=== PATIENT | female | born 1970 | race Caucasian/White ===

== ENCOUNTER 2022-02-26 13:54 | Inpatient (IN) ==
--- NOTE | 2022-02-26 14:02 | Emergency Department Note ---
HPI General Chief complaint: Wound/Laceration Stated complaint: Diabetic Ulcer Time Seen by Provider: 02/26/22 13:57 Source: patient Mode of arrival: ambulatory Limitations: no limitations History of Present Illness HPI Narrative: 52-year-old female with past medical history of type 2 diabetes presents for evaluation of a left foot ulcer. Patient has had an ulcer on the bottom of her left foot for the last [address] Coon of podiatry has been managing it with multiple courses of antibiotics and wound care. The ulcer is now not improving and Dr. Jaymie wakefield is planning to do at least a partial amputation. Patient denies any fevers. There is erythema that is going up the foot. Patient states her blood sugars have been well managed. Related Data Home Medications Medication Instructions Recorded Confirmed acetaminophen 500 mg tablet 1,000 mg PO Q6H PRN 12/12/21 02/26/22 albuterol sulfate 90 mcg/actuation 2 puff INHALATION Q6H PRN 12/12/21 02/26/22 aerosol inhaler (ProAir HFA) aspirin 81 mg tablet,delayed 81 mg PO QDAY 12/12/21 02/26/22 release atorvastatin 10 mg tablet 10 mg PO QDAY 12/12/21 02/26/22 empagliflozin 25 mg tablet 25 mg PO QAM 12/12/21 02/26/22 (Jardiance) escitalopram oxalate 20 mg tablet 20 mg PO QDAY 12/12/21 02/26/22 insulin degludec 200 unit/mL (3 150 unit SUBCUT QDAY 12/12/21 02/26/22 mL) subcutaneous pen (Tresiba FlexTouch U-200 insulin) insulin lispro 200 unit/mL (3 mL) 0 unit SUBCUT AC 12/12/21 02/26/22 subcutaneous pen (Humalog KwikPen U-200 Insulin) lisinopril 20 1 tab PO QDAY 12/12/21 02/26/22 mg-hydrochlorothiazide 25 mg tablet metformin 1,000 mg tablet,extended 750 mg PO BID 12/12/21 02/26/22 release 24hr metoprolol tartrate 25 mg tablet 25 mg PO BID 12/12/21 02/26/22 multivitamin 1 tab PO QAM 12/12/21 02/26/22 nifedipine 30 mg tablet,extended 30 mg PO QDAY 12/12/21 02/26/22 release 24 hr nitrofurantoin macrocrystal 100 mg 100 mg PO QDAY 12/12/21 02/26/22 capsule nortriptyline 10 mg capsule 20 mg PO QHS 12/12/21 02/26/22 polyethylene glycol 3350 17 gram 17 g PO QDAY 12/12/21 02/26/22 oral powder packet (Gavilax) potassium chloride 10 mEq 10 meq PO QDAY 12/12/21 02/26/22 capsule,extended release pregabalin 150 mg capsule 150 mg PO BID 12/12/21 02/26/22 semaglutide 1 mg/dose (4 mg/3 mL) 1 mg SUBCUT WEEKLY 12/12/21 02/26/22 subcutaneous pen injector (Ozempic) Allergies Allergy/AdvReac Type Severity Reaction Status Date / Time acetazolamide Allergy Intermediate Rash Verified 12/12/21 10:07 [From Diamox Sequels] duloxetine [From Cymbalta] Allergy Intermediate Rash Verified 12/12/21 10:07 pear Allergy Intermediate Flushing Verified 12/12/21 10:07 Review of Systems ROS ROS Narrative: Narrative: Constitutional: Denies fever or chills ENT ED: Denies throat pain Cardiovascular: Denies chest pain Respiratory: Denies shortness of breath or cough Gastrointestinal: Denies abdominal pain, nausea or vomiting Genitourinary: Denies dysuria Musculoskeletal: Denies back pain Integumentary: Denies rash Neurological: Denies headache Psychiatric: Denies anxiety Endocrine: Denies fatigue Hematological/Lymphatic: Denies easy bruising PFSH Narrative Patient History Narrative: Narrative: Medical/Surgical/Family History All Active Problems (Updated 02/26/22 @ 16:58 by Jovany Burnette MD) Osteomyelitis (Acute) Social History Smoking Status: Former smoker Exam Narrative Narrative: Narrative: General Limitations: no limitations General appearance: Present alert and in no apparent distress Head Head: Present atraumatic and normocephalic Eye Eye: Present normal appearance and EOMI; Absent scleral icterus or conjunctival injection ENT ENT: Present normal oropharynx and mucous membranes moist Neck Neck: Present trachea midline Chest Chest: Present symmetric chest wall rise Respiratory Respiratory: Present normal lung sounds bilaterally; Absent respiratory distress , rales/crackles, wheezes, stridor or accessory muscle use Cardiovascular Cardiovascular: Present regular rate and normal rhythm; Absent systolic murmur or diastolic murmur Adbominal Abdominal: Present soft; Absent distention, tenderness, guarding, rebound or rigidity Expanded Lower Extremity Foot/toe: Present other (1.2 cm deep ulcer on the bottom of the left foot that is foul-smelling and with some purulence. Surrounding erythema extending over t o the dorsal side of the foot.) Neurological Neurological: Present alert and oriented X3 Psychiatric Psychiatric: Present normal affect and normal mood Skin Skin: Present warm (WNL) and dry Course Consultations Consultation #1: Dr. Sifuentes, hospitalist Time: 17:12 Vital Signs Vital signs: Vital Signs Temperature 100 F H 02/26/22 13:56 Pulse Rate 67 02/26/22 13:56 Respiratory Rate 16 02/26/22 13:56 Blood Pressure 131/74 02/26/22 13:56 Pulse Oximetry (%) 98 02/26/22 13:56 Temperature 100 F H 02/26/22 13:56 Pulse Rate 103 H 02/26/22 16:16 Respiratory Rate 16 02/26/22 13:56 Blood Pressure 127/60 02/26/22 16:16 Pulse Oximetry (%) 94 02/26/22 16:16 MDM MDM Narrative Medical decision making narrative: 52-year-old female presenting with a diabetic foot ulcer that is not improving. VS stable. Will obtain labs, x-ray, and preoperative studies. Dr. Coon is requesting to admit the patient for likely amputation. Labs notable for leukocytosis to 13.6. CRP is elevated at 6.1. X-ray shows evidence of osteomyelitis and cellulitis. Blood cultures and IV vancomycin o rdered. Patient endorsed to Dr. Sifuentes, hospitalist, who will accept the admission. Dr. Coon will consult. Lab Data Lab results reviewed: Yes I reviewed the patient's lab results. Result diagrams: 02/26/22 15:20 02/26/22 15:20 Labs: Lab Results 02/26/22 02/26/22 Range/Units 15:20 15:20 WBC 13.6 H (4.5-11.0) K/mcL RBC 4.54 (3.59-5.38) M/mcL Hgb 13.1 (11.2-15.7) g/dL Hct 42.5 (34.1-44.9) % MCV 93.6 (80.0-100.0) fL MCH 28.9 (26.0-34.0) pg MCHC 30.8 L (31.0-36.0) g/dL RDW 15.6 H (11.5-14.5) % Plt Count 322 (140-440) K/mcL MPV 9.9 (7.4-10.4) fL Neut % (Auto) 70.7 (38.0-78.0) % Lymph % (Auto) 17.9 (15.5-49.0) % [place] % (Auto) 9.1 (1.0-12.0) % Eos % (Auto) 1.8 (0.0-7.0) % Baso % (Auto) 0.5 (0.0-2.0) % Lymph # (Auto) 2.43 (1.50-4.80) K/mcL [place] # (Auto) 1.23 H (0.10-0.90) K/mcL Eos # (Auto) 0.24 (0.00-0.70) K/mcL Baso # (Auto) 0.07 (0.00-0.30) K/mcL Absolute Neutrophils 9.62 H (1.80-8.00) K/mcL ESR 103 H (0-30) mm/hr Sodium 132 L (133-145) mmol/L Potassium 4.5 (3.3-5.1) mmol/L Chloride 97 (96-108) mmol/L Carbon Dioxide 25 (22-30) mmol/L Anion Gap 10.0 (8.0-16.0) BUN 24 H (6-20) mg/dL Creatinine 1.5 H (0.6-1.1) mg/dL GFR Calculation 39 Glucose 88 (70-105) mg/dL Calcium 9.4 (8.6-10.4) mg/dL Total Bilirubin 0.6 (0.1-1.0) mg/dL AST 25 (<32) U/L ALT 27 (<40) U/L Alkaline Phosphatase 135 H (39-117) U/L C-Reactive Protein 6.10 H (0.03-0.80) mg/dL Total Protein 8.2 (5.9-8.4) gm/dL Albumin 4.0 (3.2-5.2) gm/dL Globulin 4.2 H (2.2-3.7) gm/dL Albumin/Globulin Ratio 1.0 (1.0-2.3) Radiology Data Radiology results reviewed: Yes I reviewed the patient's radiology results. Radiology results narrative: Ordering Physician:Jovany Burnette M.D. Date of Service:02/26/22 Procedure(s):XR foot comp LT 3V CLINICAL INFORMATION: Diabetic ulcer COMPARISON: 10/28/2021 FINDINGS: Severe hallux valgus, moderate metatarsus abductus and second through fifth hammertoe deformities progressed from the prior exam. A 17 mm cutaneous ulcer is seen in the lateral soft tissues overlying the fifth metatarsal head. There is mild erosive changes in the plantar/lateral surface of the metatarsal head which could indicate osteomyelitis. Marked forefoot and midfoot soft tissue swelling compatible cellulitis noted. IMPRESSION: Moderate cutaneous ulcer in the lateral plantar soft tissues over the fifth metatarsal head. Erosive changes seen in the metatarsal head indicating complicating osteomyelitis Marked forefoot and midfoot soft tissue swelling likely indicating cellulitis Multiple chronic findings as as described Interpreted and Authenticated by: Dick Pierre 02/26/22 Ordering Physician:Jovany Burnette M.D. Date of Service:02/26/22 Procedure(s):XR chest 1V portable CLINICAL INFORMATION: Preop COMPARISON: 02/29/2016 TECHNIQUE: Portable FINDINGS: The heart size, mediastinum and pulmonary vessels are unremarkable. The lungs are clear. There are no effusions. The bones and soft tissues are within normal limits. IMPRESSION: Normal chest. Interpreted and Authenticated by: Dick Pierre 02/26/22 EKG Data EKG #1: EKG attestation: Yes I reviewed and interpreted this EKG. and Yes There are no EKG findings of acute coronary syndrome EKG results narrative: Sinus tachycardia. No ST elevation or depression. Interpretation: no acute changes Discharge Plan Patient/Caregiver Discharge Instructions Pt seen by INTERNAL AUDITOR/PA only: No Clinical Impression: Osteomyelitis Patient Disposition: Xfer As Inpt ([facility]) Condition: Fair Follow up with: Dick Sifuentes PA-C [Primary Care Provider] - Prescriptions: No Action multivitamin Tablet 1 tab PO QAM 0RF acetaminophen 500 mg Tablet 1,000 mg PO Q6H PRN (Reason: Pain) 0RF nortriptyline 10 mg Capsule 20 mg PO QHS 0RF nitrofurantoin macrocrystal 100 mg Capsule 100 mg PO QDAY 0RF Rx Instructions: must administer with a meal/food lisinopril-hydrochlorothiazide 20-25 mg Tablet 1 tab PO QDAY 0RF Humalog KwikPen Insulin 200 unit/mL (3 mL) Insulin Pen 0 unit SUBCUT AC 0RF Rx Instructions: Sliding scale. metformin 1,000 mg Tablet Extended Release 24hr 750 mg PO BID 0RF Ozempic 1 mg/dose (4 mg/3 mL) Pen Injector 1 mg SUBCUT WEEKLY 0RF Rx Instructions: Administered Tuesdays nifedipine 30 mg Tablet Extended Release 24 Hr 30 mg PO QDAY 0RF metoprolol tartrate 25 mg Tablet 25 mg PO BID 0RF Rx Instructions: Patient unsure if this is the dose she takes potassium chloride 10 mEq Capsule, Extended Release 10 meq PO QDAY 0RF polyethylene glycol 3350 [Gavilax] 17 gram Powder In Packet 17 g PO QDAY 0RF atorvastatin 10 mg Tablet 10 mg PO QDAY 0RF aspirin 81 mg Tablet,Delayed Release (Dr/Ec) 81 mg PO QDAY 0RF albuterol sulfate [ProAir HFA] 90 mcg/actuation Hfa Aerosol Inhaler 2 puff INHALATION Q6H PRN (Reason: Shortness Of Breath) 0RF escitalopram oxalate 20 mg Tablet 20 mg PO QDAY 0RF pregabalin 150 mg Capsule 150 mg PO BID 0RF Jardiance 25 mg Tablet 25 mg PO QAM 0RF Tresiba FlexTouch U-200 200 unit/mL (3 mL) Insulin Pen 150 unit SUBCUT QDAY 0RF
--- NOTE | 2022-02-26 15:00 | XRay Report ---
CLINICAL INFORMATION: Diabetic ulcer COMPARISON: 10/28/2021 FINDINGS: Severe hallux valgus, moderate metatarsus abductus and second through fifth hammertoe deformities progressed from the prior exam. A 17 mm cutaneous ulcer is seen in the lateral soft tissues overlying the fifth metatarsal head. There is mild erosive changes in the plantar/lateral surface of the metatarsal head which could indicate osteomyelitis. Marked forefoot and midfoot soft tissue swelling compatible cellulitis noted. IMPRESSION: Moderate cutaneous ulcer in the lateral plantar soft tissues over the fifth metatarsal head. Erosive changes seen in the metatarsal head indicating complicating osteomyelitis Marked forefoot and midfoot soft tissue swelling likely indicating cellulitis Multiple chronic findings as as described Interpreted and Authenticated by: Dick Pierre 02/26/22
--- NOTE | 2022-02-26 15:01 | XRay Report ---
CLINICAL INFORMATION: Preop COMPARISON: 02/29/2016 TECHNIQUE: Portable FINDINGS: The heart size, mediastinum and pulmonary vessels are unremarkable. The lungs are clear. There are no effusions. The bones and soft tissues are within normal limits. IMPRESSION: Normal chest. Interpreted and Authenticated by: Dick Pierre 02/26/22
[2022-02-26 15:57] LABS: Basophils # (Auto) 0.07 K/mcL (0.00-0.30); Basophils % (Auto) 0.5 % (0.0-2.0); Eosinophils # (Auto) 0.24 K/mcL (0.00-0.70); Eosinophils % (Auto) 1.8 % (0.0-7.0); Hematocrit 42.5 % (34.1-44.9); Hemoglobin 13.1 g/dL (11.2-15.7); Lymphocytes # (Auto) 2.43 K/mcL (1.50-4.80); Lymphocytes % (Auto) 17.9 % (15.5-49.0); Mean Cell Volume 93.6 fL (80.0-100.0); Mean Corpuscular HGB Conc 30.8 g/dL (31.0-36.0); Mean Platelet Volume 9.9 fL (7.4-10.4); Monocytes # (Auto) 1.23 K/mcL (0.10-0.90); Monocytes % (Auto) 9.1 % (1.0-12.0); Neutrophils % (Auto) 70.7 % (38.0-78.0); Platelet Count 322 K/mcL (140-440); RBC 4.54 M/mcL (3.59-5.38); Red Cell Distribution Width 15.6 % (11.5-14.5); WBC 13.6 K/mcL (4.5-11.0)
[2022-02-26] MEDS ORDERED: VANCOMYCIN 1,500 MG in 0.9 % SODIUM CHLORIDE 500 ML IV ONE (16:02)
[2022-02-26 16:20] LABS: ALT/SGPT 27 U/L (<40); AST/SGOT 25 U/L (<32); Alkaline Phosphatase 135 U/L (39-117); Bilirubin,Total 0.6 mg/dL (0.1-1.0); Blood Urea Nitrogen 24 mg/dL (6-20); Calcium 9.4 mg/dL (8.6-10.4); Carbon Dioxide 25 mmol/L (22-30); Chloride 97 mmol/L (96-108); Globulin 4.2 gm/dL (2.2-3.7); Glomerular Filtration Rate 39; Glucose 88 mg/dL (70-105)
[2022-02-26 17:01] LABS: Erythrocyte Sedimentation Rate 103 mm/hr (0-30)
[2022-02-26] MEDS ORDERED: fentaNYL 100 MCG/2 ML VIAL IV ONE (17:53)
[2022-02-26] MEDS ORDERED: ONDANSETRON 4 MG/2 ML VIAL IV PRN (18:02)
[2022-02-26] MEDS ORDERED: traMADol 50 MG TABLET PO PRN (18:02)
[2022-02-26] MEDS ORDERED: hydrALAZINE 20 MG/ML VIAL IV PRN (18:02)
[2022-02-26] MEDS ORDERED: diphenhydrAMINE 50 MG/ML VIAL IV PRN (18:02)
[2022-02-26] MEDS ORDERED: MELATONIN 3 MG TABLET PO PRN (18:02)
[2022-02-26] MEDS ORDERED: MAGNESIUM HYDROXIDE 30 ML ORAL.SUSP PO PRN (18:04)
[2022-02-26] MEDS ORDERED: traZODone HCL 50 MG TABLET PO PRN (18:04)
[2022-02-26] MEDS ORDERED: ALBUTEROL SULFATE 2.5 MG/3 ML NEBULIZER NEB PRN (18:04)
[2022-02-26] MEDS ORDERED: ACETAMINOPHEN 325 MG TABLET PO PRN (18:04)
[2022-02-26] MEDS ORDERED: VANCOMYCIN PER PHARMACY IV ONE (18:07)
[2022-02-26] MEDS: 0.9 % SODIUM CHLORIDE 1,000 ML IV SCH (18:50)
[2022-02-26] MEDS: cefTRIAXone 2 GM in DEXTROSE 5% IN WATER 50 ML IV SCH (19:54)
[2022-02-26] MEDS ORDERED: cefTRIAXone 2 GM VIAL ONE (19:55)
[2022-02-26] MEDS: DOCUSATE SODIUM 100 MG CAPSULE PO SCH (19:57)
[2022-02-26] MEDS: SENNOSIDES 1 TABLET PO SCH (19:57)
[2022-02-26] MEDS: 0.9 % SODIUM CHLORIDE 10 ML SYRINGE IV SCH (20:03)
[2022-02-26] MEDS ORDERED: DEXTROSE 50% 50 ML VIAL IV PRN (22:51)
[2022-02-26] MEDS ORDERED: DEXTROSE 31 GM ORAL.SUSP PO PRN (22:51)
[2022-02-27] MEDS: 0.9 % SODIUM CHLORIDE 10 ML SYRINGE IV SCH ×3 (04:44→21:14)
[2022-02-27 06:36] LABS: Basophils # (Auto) 0.07 K/mcL (0.00-0.30); Basophils % (Auto) 0.7 % (0.0-2.0); Eosinophils # (Auto) 0.33 K/mcL (0.00-0.70); Eosinophils % (Auto) 3.5 % (0.0-7.0); Hematocrit 42.7 % (34.1-44.9); Hemoglobin 12.8 g/dL (11.2-15.7); Lymphocytes # (Auto) 2.43 K/mcL (1.50-4.80); Mean Cell Volume 95.3 fL (80.0-100.0); Mean Platelet Volume 9.7 fL (7.4-10.4); Monocytes # (Auto) 0.94 K/mcL (0.10-0.90); Monocytes % (Auto) 10.1 % (1.0-12.0); Neutrophils % (Auto) 59.7 % (38.0-78.0); Platelet Count 286 K/mcL (140-440); RBC 4.48 M/mcL (3.59-5.38); Red Cell Distribution Width 15.6 % (11.5-14.5); WBC 9.3 K/mcL (4.5-11.0)
[2022-02-27 06:43] LABS: ALT/SGPT 22 U/L (<40); AST/SGOT 21 U/L (<32); Albumin 3.5 gm/dL (3.2-5.2); Albumin/Globulin Ratio 0.9 (1.0-2.3); Alkaline Phosphatase 109 U/L (39-117); Bilirubin,Total 0.7 mg/dL (0.1-1.0); Blood Urea Nitrogen 14 mg/dL (6-20); Calcium 9.2 mg/dL (8.6-10.4); Carbon Dioxide 21 mmol/L (22-30); Chloride 103 mmol/L (96-108); Globulin 3.9 gm/dL (2.2-3.7); Glomerular Filtration Rate 57; Glucose 95 mg/dL (70-105)
[2022-02-27] MEDS ORDERED: VANCOMYCIN PER PHARMACY IV SCH (06:45)
[2022-02-27] MEDS: INSULIN LISPRO 1 UNIT/0.01 ML UNIT SQ SCH ×4 (06:55→21:15)
[2022-02-27] MEDS: PANTOPRAZOLE 40 MG TABLET PO SCH (07:01)
[2022-02-27] MEDS: cefTRIAXone 2 GM in DEXTROSE 5% IN WATER 50 ML IV SCH (08:50)
--- NOTE | 2022-02-27 08:56 | General Surgery Consult Note ---
HPI Data of Consult Consult date: 02/27/22 Requesting physician: Rufina Sifuentes Primary Care Provider: Dick Sifuentes PA-C Consult Narrative Chief complaint: Evolving SEPSIS. CSSSI / Osteomyelitis LEFT 5th toe DFU. Reason for consult: Surgery for amputation of toe History of present illness: Established patient at wound care center. Seen in clinic yesterday after 3 months. ACUTE INFLAMMATION, FOUL SMELL, EXPOSED BONE AND EDEMA / ERYTHEMA around the ulcer and toe extending to proximal foot with cellulitis. Reviews notes from referring PCP Dick Sifuentes PA-C cc:: CC: Rufina Sifuentes MD Constitutional Constitutional: Present other Additional comments: Low grade fever. NO chills for 3-4 days. Uncontrolled blood sugars. On Insulin, Ozempic, Metformin and PO antibiotics. Endocrine Endocrine: Present as per HPI and other (Elevated blood sugars. Uncontrolled diabetes.) PFSH PFSH All Active Problems Osteomyelitis (Acute) MEDS/ALLERGIES Home Medications and Allergies Home Medications Medication Instructions Recorded Confirmed Type acetaminophen 500 mg tablet 1,000 mg PO Q6H PRN 12/12/21 02/26/22 History albuterol sulfate 90 mcg/actuation 2 puff INHALATION Q6H PRN 12/12/21 02/26/22 History aerosol inhaler (ProAir HFA) aspirin 81 mg tablet,delayed 81 mg PO QDAY 12/12/21 02/26/22 History release atorvastatin 10 mg tablet 10 mg PO QDAY 12/12/21 02/26/22 History empagliflozin 25 mg tablet 25 mg PO QAM 12/12/21 02/26/22 History (Jardiance) escitalopram oxalate 20 mg tablet 20 mg PO QDAY 12/12/21 02/26/22 History insulin degludec 200 unit/mL (3 150 unit SUBCUT QDAY 12/12/21 02/26/22 History mL) subcutaneous pen (Tresiba FlexTouch U-200 insulin) insulin lispro 200 unit/mL (3 mL) 0 unit SUBCUT AC 12/12/21 02/26/22 History subcutaneous pen (Humalog KwikPen U-200 Insulin) lisinopril 20 1 tab PO QDAY 12/12/21 02/26/22 History mg-hydrochlorothiazide 25 mg tablet metformin 1,000 mg tablet,extended 750 mg PO BID 12/12/21 02/26/22 History release 24hr metoprolol tartrate 25 mg tablet 25 mg PO BID 12/12/21 02/26/22 History multivitamin 1 tab PO QAM 12/12/21 02/26/22 History nifedipine 30 mg tablet,extended 30 mg PO QDAY 12/12/21 02/26/22 History release 24 hr nitrofurantoin macrocrystal 100 mg 100 mg PO QDAY 12/12/21 02/26/22 History capsule nortriptyline 10 mg capsule 20 mg PO QHS 12/12/21 02/26/22 History polyethylene glycol 3350 17 gram 17 g PO QDAY 12/12/21 02/26/22 History oral powder packet (Gavilax) potassium chloride 10 mEq 10 meq PO QDAY 12/12/21 02/26/22 History capsule,extended release pregabalin 150 mg capsule 150 mg PO BID 12/12/21 02/26/22 History semaglutide 1 mg/dose (4 mg/3 mL) 1 mg SUBCUT WEEKLY 12/12/21 02/26/22 History subcutaneous pen injector (Ozempic) Allergies Allergy/AdvReac Type Severity Reaction Status Date / Time acetazolamide Allergy Mild Rash Verified 02/26/22 19:27 [From Diamox Sequels] duloxetine [From Cymbalta] Allergy Mild Rash Verified 02/26/22 19:27 pear AdvReac Mild Flushing Verified 02/26/22 19:27 Physical Examination Vital Signs Vital signs: Temp Pulse Resp BP Pulse Ox 97.0 F 102 H 20 124/63 96 02/27/22 06:49 02/27/22 06:49 02/27/22 06:49 02/27/22 06:49 02/27/22 06:49 General physical appearance General physical exam: well developed, well nourished, no distress, moderate pain, chronically ill and obese Eyes Eye exam: PERRL and normal ocular movement ENT ENT exam: normal pinna, normal nares, normal mucosa and no congestion Head Head exam IM: Present atraumatic and normocephalic Neck Neck exam: no masses, no lymphadenopathy and no venous distension Cardiovascular Cardiovascular exam IM: Present normal rate and rhythm Peripheral pulses: 0: dorsalis pedis (L) and posterior tibialis (L) Respiratory Respiratory exam: normal expansion and clear to auscultation Abdomen Abdomen: Present soft, non tender and bowel sounds Integumentary Integumentary: Present other (Open ulcer LEFT plantar 5th toe MPJ. Exposed bone. Foul draiange, warmth, edema and erythema around ulcer later foot. Extends to ankle. Cellulitis.) Neurologic Neurologic: Present other (Diabetec with periphral neuropathy.) Musculoskeletal Musculoskeletal: Present other (Ulcer LEFT foot plantar DFU Stage 4 under 5th toe MPJ. Onychomycosis all toenails of both feet. (Toenails trimmed at bedside by nursing staff)) Psychiatric Psychiatric: Present oriented to time, oriented to person, oriented to place, speech is normal and memory intact Additional Findings Additional exam: X Ray Left foot acute osteomyelitis LEFT 5th toe MPJ and head of metatarsal bone. Leucocytosis and elevated CRP Results Labs Result diagrams: 02/27/22 05:10 02/27/22 05:10 Labs: Abnormal lab results 02/26/22 02/26/22 02/27/22 Range/Units 15:20 15:20 05:10 WBC 13.6 H (4.5-11.0) K/mcL MCHC 30.8 L 30.0 L (31.0-36.0) g/dL RDW 15.6 H 15.6 H (11.5-14.5) % [place] # (Auto) 1.23 H 0.94 H (0.10-0.90) K/mcL Absolute Neutrophils 9.62 H (1.80-8.00) K/mcL ESR 103 H (0-30) mm/hr Sodium 132 L (133-145) mmol/L Carbon Dioxide (22-30) mmol/L BUN 24 H (6-20) mg/dL Creatinine 1.5 H (0.6-1.1) mg/dL Magnesium (1.6-2.5) mg/dL Alkaline Phosphatase 135 H (39-117) U/L C-Reactive Protein 6.10 H (0.03-0.80) mg/dL Globulin 4.2 H (2.2-3.7) gm/dL Albumin/Globulin Ratio (1.0-2.3) 02/27/22 Range/Units 05:10 WBC (4.5-11.0) K/mcL MCHC (31.0-36.0) g/dL RDW (11.5-14.5) % Mower # (Auto) (0.10-0.90) K/mcL Absolute Neutrophils (1.80-8.00) K/mcL ESR (0-30) mm/hr Sodium (133-145) mmol/L Carbon Dioxide 21 L (22-30) mmol/L BUN (6-20) mg/dL Creatinine (0.6-1.1) mg/dL Magnesium 2.7 H (1.6-2.5) mg/dL Alkaline Phosphatase (39-117) U/L C-Reactive Protein (0.03-0.80) mg/dL Globulin 3.9 H (2.2-3.7) gm/dL Albumin/Globulin Ratio 0.9 L (1.0-2.3) Diabetes panel 02/26/22 02/27/22 Range/Units 15:20 05:10 Sodium 132 L 136 (133-145) mmol/L Potassium 4.5 4.1 (3.3-5.1) mmol/L Chloride 97 103 (96-108) mmol/L Carbon Dioxide 25 21 L (22-30) mmol/L BUN 24 H 14 (6-20) mg/dL Creatinine 1.5 H 1.1 (0.6-1.1) mg/dL Glucose 88 95 (70-105) mg/dL Calcium 9.4 9.2 (8.6-10.4) mg/dL AST 25 21 (<32) U/L ALT 27 22 (<40) U/L Alkaline Phosphatase 135 H 109 (39-117) U/L Total Protein 8.2 7.4 (5.9-8.4) gm/dL Albumin 4.0 3.5 (3.2-5.2) gm/dL Calcium panel 02/26/22 02/27/22 Range/Units 15:20 05:10 Calcium 9.4 9.2 (8.6-10.4) mg/dL Albumin 4.0 3.5 (3.2-5.2) gm/dL Pituitary panel 02/26/22 02/27/22 Range/Units 15:20 05:10 Sodium 132 L 136 (133-145) mmol/L Potassium 4.5 4.1 (3.3-5.1) mmol/L Chloride 97 103 (96-108) mmol/L Carbon Dioxide 25 21 L (22-30) mmol/L BUN 24 H 14 (6-20) mg/dL Creatinine 1.5 H 1.1 (0.6-1.1) mg/dL Glucose 88 95 (70-105) mg/dL Calcium 9.4 9.2 (8.6-10.4) mg/dL Adrenal panel 02/26/22 02/27/22 Range/Units 15:20 05:10 Sodium 132 L 136 (133-145) mmol/L Potassium 4.5 4.1 (3.3-5.1) mmol/L Chloride 97 103 (96-108) mmol/L Carbon Dioxide 25 21 L (22-30) mmol/L BUN 24 H 14 (6-20) mg/dL Creatinine 1.5 H 1.1 (0.6-1.1) mg/dL Glucose 88 95 (70-105) mg/dL Calcium 9.4 9.2 (8.6-10.4) mg/dL Total Bilirubin 0.6 0.7 (0.1-1.0) mg/dL AST 25 21 (<32) U/L ALT 27 22 (<40) U/L Alkaline Phosphatase 135 H 109 (39-117) U/L Total Protein 8.2 7.4 (5.9-8.4) gm/dL Albumin 4.0 3.5 (3.2-5.2) gm/dL All other labs normal. Imaging Chest x-ray: report reviewed and image reviewed EKG: report reviewed and image reviewed A/P Narrative A/P Narrative: Assessment: Patient seen with Phani Hopper RN and Latonia RAYMOND. CSSSI, SEPSIS, Acute osteomyelitis, DFU Barnes 4 LEFT foot plantar 5th toe. Onychomycosis all toe nails both feet. Nails RIGHT 1-5 and Left 1-4 trimmed by nursing staff. Plan of Treatment: Plan: For OR later this afternoon. See order. Spoke with patient about indication for surgery. R/B/C discussed. She understands and wants to proceed. Time Spent With Patient Time: Total time spent is greater than 50% in coordination of care (as documented) at patient's floor/unit and/or counseling patient: Total time spent with greater than 50% in coordination of care (as documented) at patient's floor/unit and/or counseling patient:: 35 - 50 minutes
[2022-02-27] MEDS: VANCOMYCIN 1,500 MG in 0.9 % SODIUM CHLORIDE 500 ML IV SCH ×2 (09:28→21:14)
[2022-02-27] MEDS: DOCUSATE SODIUM 100 MG CAPSULE PO SCH ×2 (10:55→21:09)
[2022-02-27] MEDS: 0.9 % SODIUM CHLORIDE 1,000 ML IV SCH (12:20)
[2022-02-27] MEDS ORDERED: SUCCINYLCHOLINE 20 MG/ML ML IV ONE (15:40)
[2022-02-27] MEDS ORDERED: fentaNYL 100 MCG/2 ML VIAL IV ONE (15:40)
[2022-02-27] MEDS ORDERED: LIDOCAINE HCL/PF 100 MG/5 ML SYRINGE IV ONE (15:40)
[2022-02-27] MEDS ORDERED: PROPOFOL 200 MG/20 ML VIAL IV ONE (15:40)
[2022-02-27] MEDS ORDERED: ONDANSETRON 4 MG/2 ML VIAL ONE (15:40)
[2022-02-27] MEDS ORDERED: DEXAMETHASONE 10 MG/ML VIAL ONE (15:40)
[2022-02-27] MEDS ORDERED: KETAMINE 50 MG/ML Syringe (ANEST) IV ONE (15:40)
[2022-02-27] MEDS ORDERED: LACTATED RINGERS 250 ML IV PRN (16:14)
[2022-02-27] MEDS ORDERED: HYDROmorphone 0.5 MG/0.5 ML SYRINGE IV PRN (16:14)
[2022-02-27] MEDS ORDERED: NALOXONE HCL 0.4 MG/ML VIAL IV PRN (16:14)
[2022-02-27] MEDS ORDERED: IPRATROPIUM/ALBUTEROL 3 ML AMPUL.NEB NEB PRN (16:14)
[2022-02-27] MEDS ORDERED: fentaNYL 100 MCG/2 ML VIAL IV PRN (16:14)
[2022-02-27] MEDS ORDERED: PROMETHAZINE 25 MG/ML VIAL IV PRN (16:14)
[2022-02-27] MEDS ORDERED: ONDANSETRON 4 MG/2 ML VIAL IV PRN (16:14)
--- NOTE | 2022-02-27 16:47 | General Surgery Procedure Note ---
Date of procedure: Note initiated : 02/27/22 at 4:42 pm Service Date, if different from initiated Date: [] Pre-op diagnosis: Sepsis. CSSSI LEFT 5th toe DFU. Osteomyelitis MPJ Post-op diagnosis: same Procedure: Transmetatarsal amputation of LEFT 5th toe. Wound packed open. Findings: Osteomyelitis and soft tissue necrosis around DFU Plantar aspect. Grafts/Implants: NONE Anesthesia: GETA Surgeon: Austin Coon Estimated blood loss: 20 Pathology: other (Soft tissue for c/s. Amputated toe with ulcer site for histopatholoogy.) Description of procedure: Transmetatarsal amputation of LEFT 5th toe. Condition: stable Disposition: PACU
[2022-02-27] MEDS ORDERED: VANCOMYCIN 1 GM VIAL TOPICAL SCH (17:00)
[2022-02-27] MEDS: SENNOSIDES 1 TABLET PO SCH (21:09)
[2022-02-27] MEDS: HYDROcodone/APAP 5/325MG TABLET PO PRN (21:13)
--- NOTE | 2022-02-27 23:24 | Internal Med History&Physical ---
HPI History of Present Illness Patient information: Note initiated : 02/26/22 at 11:23 pm Service Date, if different from initiated Date: [] Patient: Sol Thayer 52 y/o F admitted on 02/26/22 for Diabetic Ulcer. Chief Complaint: [] History of present illness: Ms. Thayer is a 52 year old F 52-year-old female with uncontrolled type 2 diabetes, obesity, hyperlipidemia, hypertension probable sleep apnea probable obstructive airway disease was bro ught to the ER from the wound care clinic for further management of osteomyelitis. Patient was evaluated at the clinic has been having worsening swelling redness around the fifth toe of the left foot where she had the ulcer for the last few weeks which has been progressively worsening with the bone exposure. Patient was evaluated in the ER and x-ray showing evidence of osteomyelitis and discussed with the wound care surgeon and insurance underwriter planning for surgery. Review of systems Constitutional: No reported fatigue no chills, no fever Eyes: no vision changes or pain Cardiovascular: no chest pain, no palpitations Respiratory: no cough or dyspnea Gastrointestinal: no nausea and stil have abdominal discomfort. Genitourinary: no dysuria or difficulty voiding Musculoskeletal: no arthralgia or myalgia Integumentary: Worsening drainage and swelling of the left foot Neurological: no focal weakness or numbness Psychiatric: no anxiety or depression Physical exam Head: No bruises, normal-appearing nontraumatic Eyes: normal appearance, no scleral icterus. Neck: full ROM Respiratory: no respiratory distress. Cardiovascular: normal rate and rhythm, S1, S2. GI/Abdominal: soft, nontender, no guarding. Extremities: Open wound of the fifth metatarsal area with drainage and foul- smelling bone exposed Neurological: CN II-XII intact, intact motor, intact sensation. Psychiatric: normal mood. Skin: warm, normal color PFSH PFSH All Active Problems Osteomyelitis (Acute) MEDS/ALLERGIES Home Medications and Allergies Home Medications Medication Instructions Recorded Confirmed Type acetaminophen 500 mg tablet 1,000 mg PO Q6H PRN 12/12/21 02/26/22 History albuterol sulfate 90 mcg/actuation 2 puff INHALATION Q6H PRN 12/12/21 02/26/22 History aerosol inhaler (ProAir HFA) aspirin 81 mg tablet,delayed 81 mg PO QDAY 12/12/21 02/26/22 History release atorvastatin 10 mg tablet 10 mg PO QDAY 12/12/21 02/26/22 History empagliflozin 25 mg tablet 25 mg PO QAM 12/12/21 02/26/22 History (Jardiance) escitalopram oxalate 20 mg tablet 20 mg PO QDAY 12/12/21 02/26/22 History insulin degludec 200 unit/mL (3 150 unit SUBCUT QDAY 12/12/21 02/26/22 History mL) subcutaneous pen (Tresiba FlexTouch U-200 insulin) insulin lispro 200 unit/mL (3 mL) 0 unit SUBCUT AC 12/12/21 02/26/22 History subcutaneous pen (Humalog KwikPen U-200 Insulin) lisinopril 20 1 tab PO QDAY 12/12/21 02/26/22 History mg-hydrochlorothiazide 25 mg tablet metformin 1,000 mg tablet,extended 750 mg PO BID 12/12/21 02/26/22 History release 24hr metoprolol tartrate 25 mg tablet 25 mg PO BID 12/12/21 02/26/22 History multivitamin 1 tab PO QAM 12/12/21 02/26/22 History nifedipine 30 mg tablet,extended 30 mg PO QDAY 12/12/21 02/26/22 History release 24 hr nitrofurantoin macrocrystal 100 mg 100 mg PO QDAY 12/12/21 02/26/22 History capsule nortriptyline 10 mg capsule 20 mg PO QHS 12/12/21 02/26/22 History polyethylene glycol 3350 17 gram 17 g PO QDAY 12/12/21 02/26/22 History oral powder packet (Gavilax) potassium chloride 10 mEq 10 meq PO QDAY 12/12/21 02/26/22 History capsule,extended release pregabalin 150 mg capsule 150 mg PO BID 12/12/21 02/26/22 History semaglutide 1 mg/dose (4 mg/3 mL) 1 mg SUBCUT WEEKLY 12/12/21 02/26/22 History subcutaneous pen injector (Ozempic) Allergies Allergy/AdvReac Type Severity Reaction Status Date / Time acetazolamide Allergy Mild Rash Verified 02/26/22 19:27 [From Diamox Sequels] duloxetine [From Cymbalta] Allergy Mild Rash Verified 02/26/22 19:27 pear AdvReac Mild Flushing Verified 02/26/22 19:27 EXAM Constitutional Vitals: Temp Pulse Resp BP Pulse Ox 96.8 F L 99 H 16 135/80 93 02/27/22 18:50 02/27/22 20:40 02/27/22 18:50 02/27/22 20:40 02/27/22 20:40 DATA Data Completed and Pending Labs: Labs from last 24 hours 02/27/22 02/27/22 05:10 05:10 WBC 9.3 RBC 4.48 Hgb 12.8 Hct 42.7 MCV 95.3 MCH 28.6 MCHC 30.0 L RDW 15.6 H Plt Count 286 MPV 9.7 Neut % (Auto) 59.7 Lymph % (Auto) 26.0 [place] % (Auto) 10.1 Eos % (Auto) 3.5 Baso % (Auto) 0.7 Lymph # (Auto) 2.43 [place] # (Auto) 0.94 H Eos # (Auto) 0.33 Baso # (Auto) 0.07 Absolute Neutrophils 5.57 Sodium 136 Potassium 4.1 Chloride 103 Carbon Dioxide 21 L Anion Gap 12.0 BUN 14 Creatinine 1.1 GFR Calculation 57 Glucose 95 Calcium 9.2 Magnesium 2.7 H Total Bilirubin 0.7 AST 21 ALT 22 Alkaline Phosphatase 109 Total Protein 7.4 Albumin 3.5 Globulin 3.9 H Albumin/Globulin Ratio 0.9 L Preliminary micro results at discharge 02/26/22 20:59 Gram Stain - Preliminary Foot - Left Wound Culture - Preliminary Staphylococcus aureus 02/26/22 15:20 Blood Culture - Preliminary Blood 02/26/22 15:10 Blood Culture - Preliminary Blood A/P Narrative Plan of Treatment: Diabetic foot ulcer Osteomyelitis of the left fifth toe Patient has been following at the wound clinic and with worsening ulcer foul- smelling exposed bone and edema Underwent x-ray showing evidence of osteomyelitis Plan Patient was admitted and started on vancomycin and ceftriaxone Podiatric surgeon planning to evaluate the patient and planning metatarsal amputation Wound culture and long-term antibiotic Type 2 diabetes Sliding scale insulin and restart her home insulin regimen Anxiety and depression Continue citalopram Essential hypertension We will restart her home medication DVT prophylaxis holding any heparin products for the surgery CODE STATUS-full code Time Spent With Patient Time: Total time spent is greater than 50% in coordination of care (as documented) at patient's floor/unit and/or counseling patient: Total time spent with greater than 50% in coordination of care (as documented) at patient's floor/unit and/or counseling patient:: 50 - 70 minutes QUALITY VTE Deep Vein Thrombosis/Pulmonary Embolism Present on Admission: No
--- NOTE | 2022-02-27 23:25 | Internal Med Progress Note ---
SUBJECTIVE Subjective Patient information: Note initiated : 02/27/22 at 11:24 pm Service Date, if different from initiated Date: [] Patient: Sol Thayer 52 y/o F admitted on 02/26/22 for Diabetic Ulcer. Chief Complaint: [] Interval history: 52-year-old female with uncontrolled type 2 diabetes, obesity, hyperlipidemia, hypertension probable sleep apnea probable obstructive airway disease was brought to the ER from the wound care clinic for further management of osteomyelitis. Patient was evaluated at the clinic has been having worsening sw elling redness around the fifth toe of the left foot where she had the ulcer for the last few weeks which has been progressively worsening with the bone exposure. Patient was evaluated in the ER and x-ray showing evidence of osteomyelitis and discussed with the wound care surgeon and supervisor adult education planning for surgery. 02/[address] Coon and planning for surgery this afternoon Continue vancomycin and ceftriaxone Review of systems Constitutional: No reported fatigue no chills, no fever Eyes: no vision changes or pain Cardiovascular: no chest pain, no palpitations Respiratory: no cough or dyspnea Gastrointestinal: no nausea and stil have abdominal discomfort. Genitourinary: no dysuria or difficulty voiding Musculoskeletal: no arthralgia or myalgia Integumentary: Worsening drainage and swelling of the left foot Neurological: no focal weakness or numbness Psychiatric: no anxiety or depression Physical exam Head: No bruises, normal-appearing nontraumatic Eyes: normal appearance, no scleral icterus. Neck: full ROM Respiratory: no respiratory distress. Cardiovascular: normal rate and rhythm, S1, S2. GI/Abdominal: soft, nontender, no guarding. Extremities: Open wound of the fifth metatarsal area with drainage and foul- smelling bone exposed Neurological: CN II-XII intact, intact motor, intact sensation. Psychiatric: normal mood. Skin: warm, normal color Constitutional Vitals: Vital Signs Temp Pulse Resp BP Pulse Ox 96.8 F L 99 H 16 135/80 93 02/27/22 18:50 02/27/22 20:40 02/27/22 18:50 02/27/22 20:40 02/27/22 20:40 Period Temp Pulse Resp BP Sys/Higuera Pulse Ox Last 24 Hr 96.8 F-100.1 F 91-103 - 101-169/61-80 92-100 Intake and Output 02/27/22 02/27/22 02/28/22 13:59 21:59 05:59 Intake Total 1550 Output Total 1000 850 Balance 550 -850 Weight 127.097 kg Patient Weight 02/28/22 05:59 Weight 127.097 kg Intake & Output: Intake & Output 02/27/22 02/27/22 02/28/22 13:59 21:59 05:59 Intake Total 1550 Output Total 1000 850 Balance 550 -850 Weight 127.097 kg Intake: IV 1550 Sodium Chloride 0.9% 1,000 ml @ 1000 75 mls/hr IV .[id number] [facility] Rx#: [id number] Vancomycin 1,500 mg In Sodium 500 Chloride 0.9% 500 ml @ 333.3 mls/hr IV Q12H [facility] Rx#: [id number] Rocephin 2 gm In Dextrose 5% in 50 Water 50 ml @ 100 mls/hr IV Q24H [facility] Rx#:[id number] Output: Void Amount 1000 850 Other: Meal Dinner Feeding Ability Independent Urine Appearance Clear Urine Color Dark Yellow Dark [place] Urine Odor Normal OBJ DATA Labs CBC & Chem 7: 02/27/22 05:10 02/27/22 05:10 Labs: Abnormal Lab Results 02/27/22 02/27/22 02/26/22 05:10 05:10 15:20 WBC MCHC 30.0 L RDW 15.6 H [place] # (Auto) 0.94 H Absolute Neutrophils ESR Sodium 132 L Carbon Dioxide 21 L BUN 24 H Creatinine 1.5 H Magnesium 2.7 H Alkaline Phosphatase 135 H C-Reactive Protein 6.10 H Globulin 3.9 H 4.2 H Albumin/Globulin Ratio 0.9 L 02/26/22 15:20 WBC 13.6 H MCHC 30.8 L RDW 15.6 H [place] # (Auto) 1.23 H Absolute Neutrophils 9.62 H ESR 103 H Sodium Carbon Dioxide BUN Creatinine Magnesium Alkaline Phosphatase C-Reactive Protein Globulin Albumin/Globulin Ratio Meds: Medications Acetaminophen (Acetaminophen 325 Mg Tablet) 650 mg PO Q6HP PRN; Protocol PRN Reason: Per Pain Protocol/Fever > 101 Hydrocodone Bitart/Acetaminophen (Hydrocodone/Apap 5/325mg Tablet) 1 tab PO Q4HP PRN; Protocol PRN Reason: Per Pain Protocol Last Admin: 02/27/22 21:13 Dose: 1 tab Documented by: Albuterol Sulfate (Albuterol Sulfate 2.5 Mg/3 Ml Nebulizer) 2.5 mg NEB Q2HP PRN PRN Reason: Shortness Of Breath Dextrose (Dextrose 50% 50 Ml Vial) 0 ml IV UD PRN PRN Reason: Per Sliding Scale Diagnostic Test (Pha) (Accu-Chek 1 Each Strip) 1 each FS [facility] Last Admin: 02/27/22 21:08 Dose: 1 each Documented by: Diphenhydramine HCl (Diphenhydramine 50 Mg/Ml Vial) 25 mg IV Q6HP PRN PRN Reason: Allergic Symptoms Docusate Sodium (Docusate Sodium 100 Mg Capsule) 100 mg PO BID [facility] Last Admin: 02/27/22 21:09 Dose: Not Given Documented by: Glucose (Dextrose 31 Gm Oral.Susp) 15 gm PO PRN PRN PRN Reason: Hypoglycemia Hydralazine HCl (Hydralazine 20 Mg/Ml Vial) 10 mg IV Q4-6HP PRN PRN Reason: Hypertension Ceftriaxone Sodium 2 gm/ (Dextrose) 50 mls @ 100 mls/hr IV Q24H [facility] Last Infusion: 02/27/22 09:20 Dose: Infused Documented by: Vancomycin HCl 1,500 mg/ (Sodium Chloride) 500 mls @ 333.3 mls/hr IV Q12H [facility] Last Admin: 02/27/22 21:14 Dose: 250 mls/hr Documented by: Insulin Human Lispro (Insulin Lispro 1 Unit/0.01 Ml Unit) 0 unit SQ [facility]; Protocol Last Admin: 02/27/22 21:15 Dose: 1 unit Documented by: Magnesium Hydroxide (Magnesium Hydroxide 30 Ml Oral.Susp) 30 ml PO DAILYP PRN PRN Reason: Constipation Melatonin (Melatonin 3 Mg Tablet) 3 mg PO HSP PRN PRN Reason: Insomnia Ondansetron HCl (Ondansetron 4 Mg/2 Ml Vial) 4 mg IV Q6HP PRN PRN Reason: Nausea And Vomiting Pantoprazole Sodium (Pantoprazole 40 Mg Tablet) 40 mg PO QAMAC [facility] Last Admin: 02/27/22 07:01 Dose: 40 mg Documented by: Senna (Sennosides 1 Tablet) 2 tab PO HS [facility] Last Admin: 02/27/22 21:09 Dose: Not Given Documented by: Sodium Chloride (0.9 % Sodium Chloride 10 Ml Syringe) 10 ml IV Q8 [facility] Last Admin: 02/27/22 21:14 Dose: 10 ml Documented by: Tramadol HCl (Tramadol 50 Mg Tablet) 50 mg PO Q4-6HP PRN; Protocol PRN Reason: Pain Trazodone HCl (Trazodone Hcl 50 Mg Tablet) 25 mg PO HSP PRN PRN Reason: Insomnia Vancomycin HCl (Vancomycin Per Pharmacy) 1 order IV UD [facility]; Protocol A/P Narrative Plan of Treatment: Diabetic foot ulcer Osteomyelitis of the left fifth toe Patient has been following at the wound clinic and with worsening ulcer foul- smelling exposed bone and edema Underwent x-ray showing evidence of osteomyelitis Plan Patient was admitted and started on vancomycin and ceftriaxone Podiatric surgeon planning to evaluate the patient and planning metatarsal amputation Wound culture and long-term antibiotic Type 2 diabetes Sliding scale insulin and restart her home insulin regimen Anxiety and depression Continue citalopram Essential hypertension We will restart her home medication DVT prophylaxis holding any heparin products for the surgery CODE STATUS-full code Time Spent With Patient Time: Total time spent is greater than 50% in coordination of care (as documented) at patient's floor/unit and/or counseling patient: QUALITY VTE Deep Vein Thrombosis/Pulmonary Embolism Present on Admission: No
[2022-02-28] MEDS: 0.9 % SODIUM CHLORIDE 10 ML SYRINGE IV SCH ×3 (05:17→20:53)
[2022-02-28 06:54] LABS: Basophils # (Auto) 0.03 K/mcL (0.00-0.30); Basophils % (Auto) 0.2 % (0.0-2.0); Eosinophils # (Auto) 0 K/mcL (0.00-0.70); Eosinophils % (Auto) 0 % (0.0-7.0); Hemoglobin 12.9 g/dL (11.2-15.7); Lymphocytes # (Auto) 1.74 K/mcL (1.50-4.80); Lymphocytes % (Auto) 14.1 % (15.5-49.0); Mean Cell Volume 95.3 fL (80.0-100.0); Mean Platelet Volume 10.1 fL (7.4-10.4); Monocytes # (Auto) 0.38 K/mcL (0.10-0.90); Monocytes % (Auto) 3.1 % (1.0-12.0); Neutrophils % (Auto) 82.6 % (38.0-78.0); Platelet Count 275 K/mcL (140-440); RBC 4.51 M/mcL (3.59-5.38); WBC 12.4 K/mcL (4.5-11.0)
[2022-02-28 07:19] LABS: ALT/SGPT 22 U/L (<40); AST/SGOT 21 U/L (<32); Albumin 3.4 gm/dL (3.2-5.2); Albumin/Globulin Ratio 0.9 (1.0-2.3); Alkaline Phosphatase 107 U/L (39-117); Bilirubin,Total 0.5 mg/dL (0.1-1.0); Blood Urea Nitrogen 14 mg/dL (6-20); Calcium 9.2 mg/dL (8.6-10.4); Carbon Dioxide 20 mmol/L (22-30); Chloride 104 mmol/L (96-108); Glomerular Filtration Rate 84; Glucose 181 mg/dL (70-105)
[2022-02-28] MEDS: PANTOPRAZOLE 40 MG TABLET PO SCH (07:53)
[2022-02-28] MEDS: DOCUSATE SODIUM 100 MG CAPSULE PO SCH ×2 (07:53→20:54)
[2022-02-28] MEDS: INSULIN LISPRO 1 UNIT/0.01 ML UNIT SQ SCH ×4 (07:53→20:53)
[2022-02-28] MEDS: cefTRIAXone 2 GM in DEXTROSE 5% IN WATER 50 ML IV SCH (09:03)
[2022-02-28] MEDS: HYDROcodone/APAP 5/325MG TABLET PO PRN ×2 (09:04→19:03)
--- NOTE | 2022-02-28 11:20 | Internal Med Progress Note ---
SUBJECTIVE Subjective Patient information: Note initiated : 02/28/22 at 11:19 am Service Date, if different from initiated Date: [] Patient: Sol Thayer 52 y/o F admitted on 02/26/22 for Diabetic Ulcer. Chief Complaint: [] Interval history: 52-year-old female with uncontrolled type 2 diabetes, obesity, hyperlipidemia, hypertension probable sleep apnea probable obstructive airway disease was brought to the ER from the wound care clinic for further management of osteomyelitis. Patient was evaluated at the clinic has been having worsening swelling redness around the fifth toe of the left foot where she had the ulcer for the last few weeks which has been progressively worsening with the bone exposure. Patient was evaluated in the ER and x-ray showing evidence of osteomyelitis and discussed with the wound care surgeon and junior media buyer planning for surgery. 02/[address] Coon and planning for surgery this afternoon Continue vancomycin and ceftriaxone 02/28 Patient underwent wound debridement and transmetatarsal amputation of the left fifth toe Postsurgically patient is doing well Continue IV antibiotics Pending cultures Review of systems Constitutional: No reported fatigue no chills, no fever Eyes: no vision changes or pain Cardiovascular: no chest pain, no palpitations Respiratory: no cough or dyspnea Gastrointestinal: no nausea and stil have abdominal discomfort. Genitourinary: no dysuria or difficulty voiding Musculoskeletal: no arthralgia or myalgia Integumentary: Worsening drainage and swelling of the left foot Neurological: no focal weakness or numbness Psychiatric: no anxiety or depression Physical exam Head: No bruises, normal-appearing nontraumatic Eyes: normal appearance, no scleral icterus. Neck: full ROM Respiratory: no respiratory distress. Cardiovascular: normal rate and rhythm, S1, S2. GI/Abdominal: soft, nontender, no guarding. Extremities: Status post transmetatarsal amputation of the fifth toe on the left side dressing in place no drainage Neurological: CN II-XII intact, intact motor, intact sensation. Psychiatric: normal mood. Skin: warm, normal color Constitutional Vitals: Vital Signs Temp Pulse Resp BP Pulse Ox 97.4 F 94 H 18 136/72 96 02/28/22 08:00 02/28/22 08:00 02/28/22 08:00 02/28/22 08:00 02/28/22 08:00 Period Temp Pulse Resp BP Sys/Higuera Pulse Ox Last 24 Hr 96.8 F-100.1 F 91-103 16-24 118-169/65-80 92-100 Intake and Output 02/27/22 02/28/22 02/28/22 21:59 05:59 13:59 Intake Total 800 1050 Output Total 850 200 Balance -851 119 1939 Weight 127.142 kg Intake & Output: Intake & Output 02/27/22 02/28/22 02/28/22 21:59 05:59 13:59 Intake Total 800 1050 Output Total 850 200 Balance -314 188 3759 Weight 127.142 kg Intake: IV 500 1050 Sodium Chloride 0.9% 1,000 ml @ 1000 75 mls/hr IV .[id number] [facility] Rx#: [id number] Vancomycin 1,500 mg In Sodium 500 Chloride 0.9% 500 ml @ 333.3 mls/hr IV Q12H [facility] Rx#: [id number] Rocephin 2 gm In Dextrose 5% in 50 Water 50 ml @ 100 mls/hr IV Q24H [facility] Rx#:[id number] Oral 300 Output: Void Amount 850 200 Other: Meal Dinner Feeding Ability Independent Urine Appearance Clear Clear Urine Color Dark Katy Bright Yellow Urine Odor Normal OBJ DATA Labs CBC & Chem 7: 02/28/22 05:05 02/28/22 05:05 Labs: Abnormal Lab Results 02/28/22 02/28/22 02/27/22 05:05 05:05 05:10 WBC 12.4 H MCHC 30.0 L RDW 15.0 H Neut % (Auto) 82.6 H Lymph % (Auto) 14.1 L [place] # (Auto) Absolute Neutrophils 10.22 H ESR Sodium Carbon Dioxide 20 L 21 L BUN Creatinine Glucose 181 H Magnesium 2.8 H 2.7 H Alkaline Phosphatase C-Reactive Protein Globulin 4.0 H 3.9 H Albumin/Globulin Ratio 0.9 L 0.9 L 02/27/22 02/26/22 02/26/22 05:10 15:20 15:20 WBC 13.6 H MCHC 30.0 L 30.8 L RDW 15.6 H 15.6 H Neut % (Auto) Lymph % (Auto) [place] # (Auto) 0.94 H 1.23 H Absolute Neutrophils 9.62 H ESR 103 H Sodium 132 L Carbon Dioxide BUN 24 H Creatinine 1.5 H Glucose Magnesium Alkaline Phosphatase 135 H C-Reactive Protein 6.10 H Globulin 4.2 H Albumin/Globulin Ratio Meds: Medications Acetaminophen (Acetaminophen 325 Mg Tablet) 650 mg PO Q6HP PRN; Protocol PRN Reason: Per Pain Protocol/Fever > 101 Hydrocodone Bitart/Acetaminophen (Hydrocodone/Apap 5/325mg Tablet) 1 tab PO Q4HP PRN; Protocol PRN Reason: Per Pain Protocol Last Admin: 02/28/22 09:04 Dose: 1 tab Documented by: Albuterol Sulfate (Albuterol Sulfate 2.5 Mg/3 Ml Nebulizer) 2.5 mg NEB Q2HP PRN PRN Reason: Shortness Of Breath Dextrose (Dextrose 50% 50 Ml Vial) 0 ml IV UD PRN PRN Reason: Per Sliding Scale Diagnostic Test (Pha) (Accu-Chek 1 Each Strip) 1 each FS [facility] Last Admin: 02/28/22 07:54 Dose: 1 each Documented by: Diphenhydramine HCl (Diphenhydramine 50 Mg/Ml Vial) 25 mg IV Q6HP PRN PRN Reason: Allergic Symptoms Docusate Sodium (Docusate Sodium 100 Mg Capsule) 100 mg PO BID [facility] Last Admin: 02/28/22 07:53 Dose: 100 mg Documented by: Glucose (Dextrose 31 Gm Oral.Susp) 15 gm PO PRN PRN PRN Reason: Hypoglycemia Hydralazine HCl (Hydralazine 20 Mg/Ml Vial) 10 mg IV Q4-6HP PRN PRN Reason: Hypertension Ceftriaxone Sodium 2 gm/ (Dextrose) 50 mls @ 100 mls/hr IV Q24H [facility] Last Infusion: 02/28/22 09:47 Dose: Infused Documented by: Vancomycin HCl 1,500 mg/ (Sodium Chloride) 500 mls @ 333.3 mls/hr IV Q12H [facility] Last Infusion: 02/27/22 23:15 Dose: Infused Documented by: Insulin Human Lispro (Insulin Lispro 1 Unit/0.01 Ml Unit) 0 unit SQ [facility]; Protocol Last Admin: 02/28/22 07:53 Dose: 2 unit Documented by: Magnesium Hydroxide (Magnesium Hydroxide 30 Ml Oral.Susp) 30 ml PO DAILYP PRN PRN Reason: Constipation Melatonin (Melatonin 3 Mg Tablet) 3 mg PO HSP PRN PRN Reason: Insomnia Ondansetron HCl (Ondansetron 4 Mg/2 Ml Vial) 4 mg IV Q6HP PRN PRN Reason: Nausea And Vomiting Pantoprazole Sodium (Pantoprazole 40 Mg Tablet) 40 mg PO QAMAC [facility] Last Admin: 02/28/22 07:53 Dose: 40 mg Documented by: Senna (Sennosides 1 Tablet) 2 tab PO HS [facility] Last Admin: 02/27/22 21:09 Dose: Not Given Documented by: Sodium Chloride (0.9 % Sodium Chloride 10 Ml Syringe) 10 ml IV Q8 [facility] Last Admin: 02/28/22 05:17 Dose: 10 ml Documented by: Tramadol HCl (Tramadol 50 Mg Tablet) 50 mg PO Q4-6HP PRN; Protocol PRN Reason: Pain Trazodone HCl (Trazodone Hcl 50 Mg Tablet) 25 mg PO HSP PRN PRN Reason: Insomnia Vancomycin HCl (Vancomycin Per Pharmacy) 1 order IV UD [facility]; Protocol A/P Narrative Plan of Treatment: Diabetic foot ulcer Osteomyelitis of the left fifth toe Patient has been following at the wound clinic and with worsening ulcer foul- smelling exposed bone and edema Underwent x-ray showing evidence of osteomyelitis Plan Patient was admitted and started on vancomycin and ceftriaxone Patient underwent transmetatarsal amputation of the left fifth toe on 02/27/2022 Wound culture, bone culture-pending Type 2 diabetes Sliding scale insulin and restart her home insulin regimen Anxiety and depression Continue citalopram Essential hypertension We will restart her home medication DVT prophylaxis holding any heparin products for the surgery CODE STATUS-full code Time Spent With Patient Time: Total time spent is greater than 50% in coordination of care (as documented) at patient's floor/unit and/or counseling patient: QUALITY VTE Deep Vein Thrombosis/Pulmonary Embolism Present on Admission: No
[2022-02-28] MEDS: VANCOMYCIN 1,500 MG in 0.9 % SODIUM CHLORIDE 500 ML IV SCH ×2 (11:54→20:53)
--- NOTE | 2022-02-28 12:44 | General Surgery Progress Note ---
SUBJECTIVE Subjective Patient information: Note initiated : 02/28/22 at 12:36 pm Service Date, if different from initiated Date: [] Patient: Sol Thayer 52 y/o F admitted on 02/26/22 for Diabetic Ulcer. Chief Complaint: [] Additional PMFSH (Level 3 Only): POD #1. Patient had an uneventful night. Dressings CDI Constitutional Vitals: Vital Signs Temp Pulse Resp BP Pulse Ox 96.9 F L 92 H 18 128/66 99 02/28/22 12:00 02/28/22 12:00 02/28/22 12:00 02/28/22 12:00 02/28/22 12:00 Period Temp Pulse Resp BP Sys/Higuera Pulse Ox Last 24 Hr 96.8 F-100.1 F 91-103 16-24 125-169/65-80 92-100 Intake and Output 02/27/22 02/28/22 02/28/22 21:59 05:59 13:59 Intake Total 800 1050 Output Total 850 200 Balance -433 945 8586 Weight 280 lb 4.8 oz Intake & Output: Intake & Output 02/27/22 02/28/22 02/28/22 21:59 05:59 13:59 Intake Total 800 1050 Output Total 850 200 Balance -099 943 5030 Weight 280 lb 4.8 oz Intake: IV 500 1050 Sodium Chloride 0.9% 1,000 ml @ 1000 75 mls/hr IV .[id number] [facility] Rx#: [id number] Vancomycin 1,500 mg In Sodium 500 Chloride 0.9% 500 ml @ 333.3 mls/hr IV Q12H [facility] Rx#: [id number] Rocephin 2 gm In Dextrose 5% in 50 Water 50 ml @ 100 mls/hr IV Q24H [facility] Rx#:[id number] Oral 300 Output: Void Amount 850 200 Other: Meal Dinner Feeding Ability Independent Urine Appearance Clear Clear Urine Color Dark [place]y Bright Yellow Urine Odor Normal Exam: AVSS. YINKA. Unremarkable. No interval changes, L/E: Dressings LEFT foot CDI Toes 1-4 PWD. Lab results reviewed. Creatinine normal. Glucose trending down. Leucocytosis improving. A/P Narrative A/P Narrative: Assessment: POD # 1. Satisfactory progress. Plan: Continue present management. Await c/s report, later deescalate antibitics. Physical therapy consult for NWB ambulation Will change primary dressing on Wednesday03/02/2022 Further recommendations about Wound VAC later. Will check with CM/SW regarding D/C planning. Discussed with Hospitalist Physician Dr. Sifuentes. Plan of Treatment: Diabetic foot ulcer Osteomyelitis of the left fifth toe Patient has been following at the wound clinic and with worsening ulcer foul- smelling exposed bone and edema Underwent x-ray showing evidence of osteomyelitis Plan Patient was admitted and started on vancomycin and ceftriaxone Patient underwent transmetatarsal amputation of the left fifth toe on 02/27/2022 Wound culture, bone culture-pending Type 2 diabetes Sliding scale insulin and restart her home insulin regimen Anxiety and depression Continue citalopram Essential hypertension We will restart her home medication DVT prophylaxis holding any heparin products for the surgery CODE STATUS-full code Time Spent With Patient Time: Total time spent is greater than 50% in coordination of care (as documented) at patient's floor/unit and/or counseling patient:
[2022-02-28] MEDS: SENNOSIDES 1 TABLET PO SCH (20:53)
[2022-02-28] MEDS ORDERED: ACETAMINOPHEN 500 MG TABLET PO PRN (22:45)
[2022-02-28] MEDS: LISINOPRIL 20 MG TABLET PO SCH (23:16)
[2022-02-28] MEDS: METOPROLOL TARTRATE 25 MG TABLET PO SCH (23:16)
[2022-02-28] MEDS ORDERED: LISINOPRIL 20 MG TABLET ONE (23:23)
[2022-02-28] MEDS ORDERED: METOPROLOL TARTRATE 25 MG TABLET ONE (23:23)
[2022-03-01] MEDS: 0.9 % SODIUM CHLORIDE 10 ML SYRINGE IV SCH ×4 (05:28→21:07)
[2022-03-01 06:42] LABS: Basophils # (Auto) 0.06 K/mcL (0.00-0.30); Basophils % (Auto) 0.6 % (0.0-2.0); Eosinophils # (Auto) 0.15 K/mcL (0.00-0.70); Eosinophils % (Auto) 1.5 % (0.0-7.0); Hematocrit 40.3 % (34.1-44.9); Hemoglobin 12.5 g/dL (11.2-15.7); Lymphocytes # (Auto) 2.72 K/mcL (1.50-4.80); Lymphocytes % (Auto) 27.6 % (15.5-49.0); Mean Cell Volume 94.2 fL (80.0-100.0); Monocytes # (Auto) 0.84 K/mcL (0.10-0.90); Monocytes % (Auto) 8.5 % (1.0-12.0); Neutrophils % (Auto) 61.8 % (38.0-78.0); Platelet Count 308 K/mcL (140-440); RBC 4.28 M/mcL (3.59-5.38); Red Cell Distribution Width 15.3 % (11.5-14.5); WBC 9.9 K/mcL (4.5-11.0)
[2022-03-01 07:12] LABS: ALT/SGPT 25 U/L (<40); AST/SGOT 25 U/L (<32); Albumin 3.3 gm/dL (3.2-5.2); Albumin/Globulin Ratio 0.8 (1.0-2.3); Alkaline Phosphatase 108 U/L (39-117); Bilirubin,Total 0.3 mg/dL (0.1-1.0); Blood Urea Nitrogen 22 mg/dL (6-20); Calcium 9.1 mg/dL (8.6-10.4); Carbon Dioxide 24 mmol/L (22-30); Chloride 106 mmol/L (96-108); Globulin 3.9 gm/dL (2.2-3.7); Glomerular Filtration Rate 72; Glucose 232 mg/dL (70-105)
[2022-03-01] MEDS: INSULIN LISPRO 1 UNIT/0.01 ML UNIT SQ SCH ×4 (07:27→20:32)
[2022-03-01] MEDS: PANTOPRAZOLE 40 MG TABLET PO SCH (07:27)
[2022-03-01] MEDS: POLYETHYLENE GLYCOL 3350 17 GM PACKET PO SCH (08:18)
[2022-03-01] MEDS: LISINOPRIL 20 MG TABLET PO SCH (08:19)
[2022-03-01] MEDS: cefTRIAXone 2 GM in DEXTROSE 5% IN WATER 50 ML IV SCH (08:19)
[2022-03-01] MEDS: MULTIVIT,THER IRON,CA,FA & MIN 1 TABLET PO SCH (08:19)
[2022-03-01] MEDS: NIFEdipine 30 MG TAB.XL.24H PO SCH (08:19)
[2022-03-01] MEDS: ATORVASTATIN 10 MG TABLET PO SCH (08:19)
[2022-03-01] MEDS: DOCUSATE SODIUM 100 MG CAPSULE PO SCH ×2 (08:19→20:32)
[2022-03-01] MEDS: PREGABALIN 150 MG CAPSULE PO SCH ×2 (08:19→20:33)
[2022-03-01] MEDS: ASPIRIN 81 MG TAB.CHEW PO SCH (08:19)
[2022-03-01] MEDS: ESCITALOPRAM 20 MG TABLET PO SCH (08:19)
[2022-03-01] MEDS: METOPROLOL TARTRATE 25 MG TABLET PO SCH ×2 (08:19→20:33)
[2022-03-01] MEDS ORDERED: [UNRECOGNIZED DRUG - OTHER] PO SCH (09:00)
[2022-03-01] MEDS ORDERED: METFORMIN 1000 MG PO SCH (09:00)
[2022-03-01] MEDS: metFORMIN 500 MG TAB.XL.24H PO SCH ×2 (09:44→17:07)
[2022-03-01] MEDS: VANCOMYCIN 1,500 MG in 0.9 % SODIUM CHLORIDE 500 ML IV SCH ×3 (10:10→21:07)
--- NOTE | 2022-03-01 11:34 | Internal Med Progress Note ---
SUBJECTIVE Subjective Patient information: Note initiated : 03/01/22 at 11:34 am Service Date, if different from initiated Date: [] Patient: Sol Thayer 52 y/o F admitted on 02/26/22 for Diabetic Ulcer. Chief Complaint: [] Interval history: 52-year-old female with uncontrolled type 2 diabetes, obesity, hyperlipidemia, hypertension probable sleep apnea probable obstructive airway disease was brought to the ER from the wound care clinic for further management of osteomyelitis. Patient was evaluated at the clinic has been having worsening swelling redness around the fifth toe of the left foot where she had the ulcer for the last few weeks which has been progressively worsening with the bone exposure. Patient was evaluated in the ER and x-ray showing evidence of osteomyelitis and discussed with the wound care surgeon and electronic scanner operator planning for surgery. 02/[address] Coon and planning for surgery this afternoon Continue vancomycin and ceftriaxone 02/28 Patient underwent wound debridement and transmetatarsal amputation of the left fifth toe Postsurgically patient is doing well Continue IV antibiotics Pending cultures 03/01 Bone culture growing Staphylococcus further sensitivity pending Continue IV antibiotics Review of systems Constitutional: No reported fatigue no chills, no fever Eyes: no vision changes or pain Cardiovascular: no chest pain, no palpitations Respiratory: no cough or dyspnea Gastrointestinal: no nausea and stil have abdominal discomfort. Genitourinary: no dysuria or difficulty voiding Musculoskeletal: no arthralgia or myalgia Integumentary: Worsening drainage and swelling of the left foot Neurological: no focal weakness or numbness Psychiatric: no anxiety or depression Physical exam Head: No bruises, normal-appearing nontraumatic Eyes: normal appearance, no scleral icterus. Neck: full ROM Respiratory: no respiratory distress. Cardiovascular: normal rate and rhythm, S1, S2. GI/Abdominal: soft, nontender, no guarding. Extremities: Status post transmetatarsal amputation of the fifth toe on the left side dressing in place no drainage Neurological: CN II-XII intact, intact motor, intact sensation. Psychiatric: normal mood. Skin: warm, normal color Constitutional Vitals: Vital Signs Temp Pulse Resp BP Pulse Ox 98.0 F 86 20 142/84 94 03/01/22 08:00 03/01/22 08:00 03/01/22 08:00 03/01/22 08:00 03/01/22 08:00 Period Temp Pulse Resp BP Sys/Higuera Pulse Ox Last 24 Hr 96.9 F-98.4 F 71-104 16-20 128-160/66-88 94-99 Intake and Output 02/28/22 03/01/22 03/01/22 21:59 05:59 13:59 Intake Total 860 900 50 Output Total 500 850 Balance 360 50 50 Weight 125.781 kg Intake & Output: Intake & Output 02/28/22 03/01/22 03/01/22 21:59 05:59 13:59 Intake Total 860 900 50 Output Total 500 850 Balance 360 50 50 Weight 125.781 kg Intake: IV 500 500 50 Vancomycin 1,500 mg In Sodium 500 500 Chloride 0.9% 500 ml @ 333.3 mls/hr IV Q12H [facility] Rx#: [id number] Rocephin 2 gm In Dextrose 5% in 50 Water 50 ml @ 100 mls/hr IV Q24H [facility] Rx#:[id number] Oral 360 400 Output: Void Amount 500 850 Other: Meal Lunch Percent of Meal Consumed 50% Feeding Ability Independent Urine Appearance Clear Clear Urine Color Bright Yellow Bright Yellow Urine Odor Normal OBJ DATA Labs CBC & Chem 7: 03/01/22 05:13 03/01/22 05:13 Labs: Abnormal Lab Results 03/01/22 03/01/22 02/28/22 05:13 05:13 05:05 WBC MCHC RDW 15.3 H Neut % (Auto) Lymph % (Auto) [place] # (Auto) Absolute Neutrophils ESR Sodium Carbon Dioxide 20 L BUN 22 H Creatinine Glucose 232 H 181 H Magnesium 2.8 H Alkaline Phosphatase C-Reactive Protein Globulin 3.9 H 4.0 H Albumin/Globulin Ratio 0.8 L 0.9 L 02/28/22 02/27/22 02/27/22 05:05 05:10 05:10 WBC 12.4 H MCHC 30.0 L 30.0 L RDW 15.0 H 15.6 H Neut % (Auto) 82.6 H Lymph % (Auto) 14.1 L [place] # (Auto) 0.94 H Absolute Neutrophils 10.22 H ESR Sodium Carbon Dioxide 21 L BUN Creatinine Glucose Magnesium 2.7 H Alkaline Phosphatase C-Reactive Protein Globulin 3.9 H Albumin/Globulin Ratio 0.9 L 02/26/22 02/26/22 15:20 15:20 WBC 13.6 H MCHC 30.8 L RDW 15.6 H Neut % (Auto) Lymph % (Auto) [place] # (Auto) 1.23 H Absolute Neutrophils 9.62 H ESR 103 H Sodium 132 L Carbon Dioxide BUN 24 H Creatinine 1.5 H Glucose Magnesium Alkaline Phosphatase 135 H C-Reactive Protein 6.10 H Globulin 4.2 H Albumin/Globulin Ratio Meds: Medications Acetaminophen (Acetaminophen 325 Mg Tablet) 650 mg PO Q6HP PRN; Protocol PRN Reason: Per Pain Protocol/Fever > 101 Hydrocodone Bitart/Acetaminophen (Hydrocodone/Apap 5/325mg Tablet) 1 tab PO Q4HP PRN; Protocol PRN Reason: Per Pain Protocol Last Admin: 02/28/22 19:03 Dose: 1 tab Documented by: Albuterol Sulfate (Albuterol Sulfate 2.5 Mg/3 Ml Nebulizer) 2.5 mg NEB Q2HP PRN PRN Reason: Shortness Of Breath Aspirin (Aspirin 81 Mg Tab.Chew) 81 mg PO DAILY [facility] Last Admin: 03/01/22 08:19 Dose: 81 mg Documented by: Atorvastatin Calcium (Atorvastatin 10 Mg Tablet) 10 mg PO QDAY [facility] Last Admin: 03/01/22 08:19 Dose: 10 mg Documented by: Dextrose (Dextrose 50% 50 Ml Vial) 0 ml IV UD PRN PRN Reason: Per Sliding Scale Diagnostic Test (Pha) (Accu-Chek 1 Each Strip) 1 each FS ACHS [facility] Last Admin: 03/01/22 11:13 Dose: 1 each Documented by: Diphenhydramine HCl (Diphenhydramine 50 Mg/Ml Vial) 25 mg IV Q6HP PRN PRN Reason: Allergic Symptoms Docusate Sodium (Docusate Sodium 100 Mg Capsule) 100 mg PO BID [facility] Last Admin: 03/01/22 08:19 Dose: 100 mg Documented by: Escitalopram Oxalate (Escitalopram 20 Mg Tablet) 20 mg PO QDAY [facility] Last Admin: 03/01/22 08:19 Dose: 20 mg Documented by: Glucose (Dextrose 31 Gm Oral.Susp) 15 gm PO PRN PRN PRN Reason: Hypoglycemia Hydralazine HCl (Hydralazine 20 Mg/Ml Vial) 10 mg IV Q4-6HP PRN PRN Reason: Hypertension Ceftriaxone Sodium 2 gm/ (Dextrose) 50 mls @ 100 mls/hr IV Q24H [facility] Last Infusion: 03/01/22 08:58 Dose: Infused Documented by: Vancomycin HCl 1,500 mg/ (Sodium Chloride) 500 mls @ 333.3 mls/hr IV Q12H [facility] Last Admin: 03/01/22 10:10 Dose: 333.3 mls/hr Documented by: Insulin Human Lispro (Insulin Lispro 1 Unit/0.01 Ml Unit) 0 unit SQ ACHS [facility]; Protocol Last Admin: 03/01/22 11:13 Dose: 3 unit Documented by: Iron Carb/Multivit/Acid Dipper/Folic Acid (Multivit,Ther Iron,Ca,Fa & Min 1 Tablet) 1 tab PO DAILY [facility] Last Admin: 03/01/22 08:19 Dose: 1 tab Documented by: Lisinopril (Lisinopril 20 Mg Tablet) 20 mg PO DAILY [facility] Last Admin: 03/01/22 08:19 Dose: 20 mg Documented by: Magnesium Hydroxide (Magnesium Hydroxide 30 Ml Oral.Susp) 30 ml PO DAILYP PRN PRN Reason: Constipation Melatonin (Melatonin 3 Mg Tablet) 3 mg PO HSP PRN PRN Reason: Insomnia Metformin HCl (Metformin 500 Mg Tab.Xl.24h) 500 mg PO BIDCC [facility] Last Admin: 03/01/22 09:44 Dose: 500 mg Documented by: Metoprolol Tartrate (Metoprolol Tartrate 25 Mg Tablet) 25 mg PO BID [facility] Last Admin: 03/01/22 08:19 Dose: 25 mg Documented by: Nifedipine (Nifedipine 30 Mg Tab.Xl.24h) 30 mg PO QDAY [facility] Last Admin: 03/01/22 08:19 Dose: 30 mg Documented by: Ondansetron HCl (Ondansetron 4 Mg/2 Ml Vial) 4 mg IV Q6HP PRN PRN Reason: Nausea And Vomiting Pantoprazole Sodium (Pantoprazole 40 Mg Tablet) 40 mg PO QAMAC [facility] Last Admin: 03/01/22 07:27 Dose: 40 mg Documented by: Polyethylene Glycol (Polyethylene Glycol 3350 17 Gm Packet) 17 gm PO DAILY [facility] Last Admin: 03/01/22 08:18 Dose: 17 gm Documented by: Pregabalin (Pregabalin 150 Mg Capsule) 150 mg PO BID [facility] Last Admin: 03/01/22 08:19 Dose: 150 mg Documented by: Senna (Sennosides 1 Tablet) 2 tab PO HS [facility] Last Admin: 02/28/22 20:53 Dose: Not Given Documented by: Sodium Chloride (0.9 % Sodium Chloride 10 Ml Syringe) 10 ml IV Q8 [facility] Last Admin: 03/01/22 05:28 Dose: 10 ml Documented by: Tramadol HCl (Tramadol 50 Mg Tablet) 50 mg PO Q4-6HP PRN; Protocol PRN Reason: Pain Trazodone HCl (Trazodone Hcl 50 Mg Tablet) 25 mg PO HSP PRN PRN Reason: Insomnia Vancomycin HCl (Vancomycin Per Pharmacy) 1 order IV UD [facility]; Protocol A/P Narrative Plan of Treatment: Diabetic foot ulcer Osteomyelitis of the left fifth toe Patient has been following at the wound clinic and with worsening ulcer foul- smelling exposed bone and edema Underwent x-ray showing evidence of osteomyelitis Plan Patient was admitted and started on vancomycin and ceftriaxone Patient underwent transmetatarsal amputation of the left fifth toe on 02/27/2022 Wound culture, bone culture-Growing Staphylococcus and further sensitivity pending Type 2 diabetes Sliding scale insulin and restart her home insulin regimen Anxiety and depression Continue citalopram Essential hypertension We will restart her home medication DVT prophylaxis holding any heparin products for the surgery CODE STATUS-full code Time Spent With Patient Time: Total time spent is greater than 50% in coordination of care (as documented) at patient's floor/unit and/or counseling patient: QUALITY VTE Deep Vein Thrombosis/Pulmonary Embolism Present on Admission: No
--- NOTE | 2022-03-01 12:28 | General Surgery Progress Note ---
SUBJECTIVE Subjective Patient information: Note initiated : 03/01/22 at 12:26 pm Service Date, if different from initiated Date: [] Patient: Sol Thayer 52 y/o F admitted on 02/26/22 for Diabetic Ulcer. Chief Complaint: [] Additional PMFSH (Level 3 Only): Patient had an uneventful night. Constitutional Vitals: Vital Signs Temp Pulse Resp BP Pulse Ox 98.4 F 90 18 136/80 93 03/01/22 12:00 03/01/22 12:00 03/01/22 12:00 03/01/22 12:00 03/01/22 12:00 Period Temp Pulse Resp BP Sys/[place] Pulse Ox Last 24 Hr 97.1 F-98.4 F 71-104 16-20 136-160/66-88 93-98 Intake and Output 02/28/22 03/01/22 03/01/22 21:59 05:59 13:59 Intake Total 860 900 550 Output Total 500 850 Balance 360 50 550 Weight 277 lb 4.8 oz Intake & Output: Intake & Output 02/28/22 03/01/22 03/01/22 21:59 05:59 13:59 Intake Total 860 900 550 Output Total 500 850 Balance 360 50 550 Weight 277 lb 4.8 oz Intake: IV 500 500 550 Vancomycin 1,500 mg In Sodium 500 500 500 Chloride 0.9% 500 ml @ 333.3 mls/hr IV Q12H [facility] Rx#: [id number] Rocephin 2 gm In Dextrose 5% in 50 Water 50 ml @ 100 mls/hr IV Q24H [facility] Rx#:[id number] Oral 360 400 Output: Void Amount 500 850 Other: Meal Lunch Percent of Meal Consumed 50% Feeding Ability Independent Urine Appearance Clear Clear Urine Color Bright Yellow Bright Yellow Urine Odor Normal Exam: AVSS. No changes YINKA. Dressings LEFT foot CDI Final tissue c/s awaited. A/P Narrative A/P Narrative: Assessment: Satisfactory progress. Plan: Continue with IV antibiotics at this time. Change dressings tomorrow. Further recommendations to follow. Plan of Treatment: Diabetic foot ulcer Osteomyelitis of the left fifth toe Patient has been following at the wound clinic and with worsening ulcer foul- smelling exposed bone and edema Underwent x-ray showing evidence of osteomyelitis Plan Patient was admitted and started on vancomycin and ceftriaxone Patient underwent transmetatarsal amputation of the left fifth toe on 02/27/2022 Wound culture, bone culture-Growing Staphylococcus and further sensitivity pending Type 2 diabetes Sliding scale insulin and restart her home insulin regimen Anxiety and depression Continue citalopram Essential hypertension We will restart her home medication DVT prophylaxis holding any heparin products for the surgery CODE STATUS-full code Time Spent With Patient Time: Total time spent is greater than 50% in coordination of care (as documented) at patient's floor/unit and/or counseling patient:
[2022-03-01] MEDS: HYDROcodone/APAP 5/325MG TABLET PO PRN (14:48)
[2022-03-01] MEDS: SENNOSIDES 1 TABLET PO SCH (20:32)
[2022-03-01] MEDS: INSULIN GLARGINE, HUMAN 1 UNIT/0.01 ML SQ SCH (20:33)
[2022-03-02] MEDS: HYDROcodone/APAP 5/325MG TABLET PO PRN ×2 (01:34→12:22)
[2022-03-02] MEDS: 0.9 % SODIUM CHLORIDE 10 ML SYRINGE IV SCH ×3 (05:22→21:58)
[2022-03-02 06:49] LABS: Estimated Average Glucose(eAG) 177 mg/dL; Hemoglobin A1C 7.8 % Hgb (4.0-6.0)
[2022-03-02 06:51] LABS: Basophils # (Auto) 0.07 K/mcL (0.00-0.30); Basophils % (Auto) 0.8 % (0.0-2.0); Eosinophils # (Auto) 0.28 K/mcL (0.00-0.70); Eosinophils % (Auto) 3.1 % (0.0-7.0); Hematocrit 41.6 % (34.1-44.9); Hemoglobin 12.6 g/dL (11.2-15.7); Lymphocytes # (Auto) 2.67 K/mcL (1.50-4.80); Lymphocytes % (Auto) 29.3 % (15.5-49.0); Mean Cell Volume 94.5 fL (80.0-100.0); Mean Corpuscular HGB Conc 30.3 g/dL (31.0-36.0); Mean Platelet Volume 9.7 fL (7.4-10.4); Monocytes # (Auto) 0.56 K/mcL (0.10-0.90); Monocytes % (Auto) 6.1 % (1.0-12.0); Neutrophils % (Auto) 60.7 % (38.0-78.0); Platelet Count 317 K/mcL (140-440); Red Cell Distribution Width 14.9 % (11.5-14.5); WBC 9.1 K/mcL (4.5-11.0)
[2022-03-02 07:11] LABS: Prealbumin 11.1 mg/dL (20.0-40.0)
[2022-03-02 07:19] LABS: ALT/SGPT 29 U/L (<40); AST/SGOT 29 U/L (<32); Albumin 3.3 gm/dL (3.2-5.2); Albumin/Globulin Ratio 0.9 (1.0-2.3); Alkaline Phosphatase 103 U/L (39-117); Bilirubin,Total 0.3 mg/dL (0.1-1.0); Blood Urea Nitrogen 14 mg/dL (6-20); Calcium 9.2 mg/dL (8.6-10.4); Carbon Dioxide 23 mmol/L (22-30); Chloride 103 mmol/L (96-108); Globulin 3.8 gm/dL (2.2-3.7); Glomerular Filtration Rate 98; Glucose 179 mg/dL (70-105); Thyroid Stimulating Hormone 0.85 uIU/mL (0.27-5.01)
[2022-03-02] MEDS: metFORMIN 500 MG TAB.XL.24H PO SCH ×2 (07:32→16:57)
[2022-03-02] MEDS: PANTOPRAZOLE 40 MG TABLET PO SCH (07:32)
[2022-03-02] MEDS: INSULIN LISPRO 1 UNIT/0.01 ML UNIT SQ SCH ×4 (07:33→21:57)
[2022-03-02] MEDS: POLYETHYLENE GLYCOL 3350 17 GM PACKET PO SCH (08:20)
[2022-03-02] MEDS: ATORVASTATIN 10 MG TABLET PO SCH (08:21)
[2022-03-02] MEDS: METOPROLOL TARTRATE 25 MG TABLET PO SCH ×2 (08:21→21:58)
[2022-03-02] MEDS: LISINOPRIL 20 MG TABLET PO SCH (08:21)
[2022-03-02] MEDS: PREGABALIN 150 MG CAPSULE PO SCH ×2 (08:21→21:58)
[2022-03-02] MEDS: ESCITALOPRAM 20 MG TABLET PO SCH (08:21)
[2022-03-02] MEDS: ASPIRIN 81 MG TAB.CHEW PO SCH (08:21)
[2022-03-02] MEDS: DOCUSATE SODIUM 100 MG CAPSULE PO SCH ×2 (08:21→21:58)
[2022-03-02] MEDS: MULTIVIT,THER IRON,CA,FA & MIN 1 TABLET PO SCH (08:21)
[2022-03-02] MEDS: NIFEdipine 30 MG TAB.XL.24H PO SCH (08:21)
[2022-03-02] MEDS: INSULIN GLARGINE, HUMAN 1 UNIT/0.01 ML SQ SCH (08:25)
--- NOTE | 2022-03-02 09:15 | Operative Note ---
DATE OF OPERATION: 02/27/2022 PREOPERATIVE DIAGNOSES: Sepsis, complicated skin and skin structure infection, LEFT fifth toe diabetic foot ulcer Stage 4 with osteomyelitis of MP joint. POSTOPERATIVE DIAGNOSES: Sepsis, complicated skin and skin structure infection, LEFT fifth toe diabetic foot ulcer Stage 4 with osteomyelitis of MP joint. PROCEDURE: Transmetatarsal amputation of left fifth toe. Wound is packed open. SURGEON: Austin Coon M.D. FINDINGS: Osteomyelitis and soft tissue necrosis around the diabetic foot ulcer on plantar aspect. ANESTHESIA: General endotracheal. MANAGER STRATEGY & ACCOUNT: Kyle Osorio CRNA and Christopher Masters CRNA. ESTIMATED BLOOD LOSS: 20 mL. COUNTS: Count of swabs, instruments, and needles was reported to be correct. SPECIMENS OBTAINED: Soft tissue for culture and sensitivity and amputated toe for histopathology. CONDITION: Operation was well tolerated. INDICATIONS FOR SURGERY: This patient had a chronic diabetic foot ulcer, which got infected. She was seen in the clinic and admitted emergently via ER for sepsis and evolving SIRS. After obtaining informed consent, she was taken to the OR for surgery. PROCEDURE NOTE IN DETAIL: After obtaining informed consent, patient was taken to the operating room. She was anesthetized uneventfully on the table using endotracheal anesthesia in supine position. The left lower extremity was widely cleaned, prepped, and draped after prior application of a tourniquet at the mid thigh level. A timeout was called. Intravenous antibiotics were running at the time of surgery. The tourniquet was first inflated after exsanguination of foot and leg with Esmarch bandage. Incision was marked out, incorporating the ulcer, adjacent skin and soft tissue. Most of the incision was placed on the dorsal aspect between the fourth and fifth toe. We started off by making the incision along the dorsal aspect. Sharp dissection was carried out through the soft tissues onto the metatarsal bone. We stayed proximal to the MP joint. This area was skeletonized. Later, the incision was made around the plantar aspect and back again towards the dorsal aspect. Oscillating saw was used and bone was transected. The soft tissue flaps were mobilized. The wound site was copiously irrigated and subsequently pulse lavaged with 3 liters of normal saline containing 1 gram of vancomycin. Bleeding along the edges was controlled with continuous running suture of #1 PDS. We used interrupted sutures of same material to approximate the corners of the wound, so that it could be stabilized. This patient is going to need a postoperative wound VAC and another surgical procedure down the line after resolution of current problems. She will need a split-thickness skin graft later. The tourniquet was deflated. Overall, tourniquet time was about 25 minutes. Hemostasis was satisfactory. The wound was now cleaned and dressed with Xeroform gauze, reinforced with a 2-inch Kerlix soaked in Betadine solution. Dry gauze pieces were placed between the toes and the main dressing was reinforced with gauze, Kerlix, Coban, and Nickolas. Operation was well tolerated. VD:murphy Job ID: [id number] Doc ID: [id number] Austin Coon MD MTDD
--- NOTE | 2022-03-02 09:54 | Internal Med Progress Note ---
SUBJECTIVE Subjective Patient information: Note initiated : 03/02/22 at 9:54 am Service Date, if different from initiated Date: [] Patient: Sol Thayer 52 y/o F admitted on 02/26/22 for Diabetic Ulcer. Chief Complaint: [] Interval history: 52-year-old female with uncontrolled type 2 diabetes, obesity, hyperlipidemia, hypertension probable sleep apnea probable obstructive airway disease was brought to the ER from the wound care clinic for further management of osteomyelitis. Patient was evaluated at the clinic has been having worsening swelling redness around the fifth toe of the left foot where she had the ulcer for the last few weeks which has been progressively worsening with the bone exposure. Patient was evaluated in the ER and x-ray showing evidence of osteomyelitis and discussed with the wound care surgeon and merchandise flow team leader planning for surgery. 02/[address] Coon and planning for surgery this afternoon Continue vancomycin and ceftriaxone 02/28 Patient underwent wound debridement and transmetatarsal amputation of the left fifth toe Postsurgically patient is doing well Continue IV antibiotics Pending cultures 03/01 Bone culture growing Staphylococcus further sensitivity pending Continue IV antibiotics 03/[address] Coon and he recommended nonweightbearing and preferably send the patient to rehab due to her obesity and nonweightbearing status and wound care needs Vancomycin discontinued Wound culture growing MSSA and Streptococcus-we will keep the ceftriaxone But can be changed to p.o. antibiotic upon discharge as per Dr. Coon Review of systems Constitutional: No reported fatigue no chills, no fever Eyes: no vision changes or pain Cardiovascular: no chest pain, no palpitations Respiratory: no cough or dyspnea Gastrointestinal: no nausea and stil have abdominal discomfort. Genitourinary: no dysuria or difficulty voiding Musculoskeletal: no arthralgia or myalgia Integumentary: Worsening drainage and swelling of the left foot Neurological: no focal weakness or numbness Psychiatric: no anxiety or depression Physical exam Head: No bruises, normal-appearing nontraumatic Eyes: normal appearance, no scleral icterus. Neck: full ROM Respiratory: no respiratory distress. Cardiovascular: normal rate and rhythm, S1, S2. GI/Abdominal: soft, nontender, no guarding. Extremities: Serous drainage on the dressing Neurological: CN II-XII intact, intact motor, intact sensation. Psychiatric: normal mood. Skin: warm, normal color Constitutional Vitals: Vital Signs Temp Pulse Resp BP Pulse Ox 96.3 F L 82 20 175/86 96 03/02/22 07:49 03/02/22 07:49 03/02/22 07:49 03/02/22 07:49 03/02/22 07:49 Period Temp Pulse Resp BP Sys/Higuera Pulse Ox Last 24 Hr 96.3 F-98.4 F 82-93 16-20 129-175/72-89 92-96 Intake and Output 03/01/22 03/02/22 03/02/22 21:59 05:59 13:59 Intake Total 1500 1300 Output Total 400 1800 Balance 1100 -500 Weight 126.462 kg Intake & Output: Intake & Output 03/01/22 03/02/22 03/02/22 21:59 05:59 13:59 Intake Total 1500 1300 Output Total 400 1800 Balance 1100 -500 Weight 126.462 kg Intake: IV 500 Vancomycin 1,500 mg In Sodium 500 Chloride 0.9% 500 ml @ 333.3 mls/hr IV Q12H [facility] Rx#: [id number] Oral 1500 800 Output: Void Amount 400 1800 Other: Meal Dinner Percent of Meal Consumed 100% Urine Appearance Clear Clear Urine Color Bright Yellow Bright Yellow Urine Odor Strong OBJ DATA Labs CBC & Chem 7: 03/02/22 05:17 03/02/22 05:17 Labs: Abnormal Lab Results 03/02/22 03/02/22 03/02/22 08:01 05:17 05:17 WBC MCHC 30.3 L RDW 14.9 H Neut % (Auto) Lymph % (Auto) Absolute Neutrophils Carbon Dioxide BUN Glucose 179 H Hemoglobin A1c 7.8 H Magnesium Globulin 3.8 H Albumin/Globulin Ratio 0.9 L Prealbumin 11.1 L Vancomycin Trough 20.0 H* 03/01/22 03/01/22 02/28/22 05:13 05:13 05:05 WBC MCHC RDW 15.3 H Neut % (Auto) Lymph % (Auto) Absolute Neutrophils Carbon Dioxide 20 L BUN 22 H Glucose 232 H 181 H Hemoglobin A1c Magnesium 2.8 H Globulin 3.9 H 4.0 H Albumin/Globulin Ratio 0.8 L 0.9 L Prealbumin Vancomycin Trough 02/28/22 05:05 WBC 12.4 H MCHC 30.0 L RDW 15.0 H Neut % (Auto) 82.6 H Lymph % (Auto) 14.1 L Absolute Neutrophils 10.22 H Carbon Dioxide BUN Glucose Hemoglobin A1c Magnesium Globulin Albumin/Globulin Ratio Prealbumin Vancomycin Trough Meds: Medications Acetaminophen (Acetaminophen 325 Mg Tablet) 650 mg PO Q6HP PRN; Protocol PRN Reason: Per Pain Protocol/Fever > 101 Hydrocodone Bitart/Acetaminophen (Hydrocodone/Apap 5/325mg Tablet) 1 tab PO Q4HP PRN; Protocol PRN Reason: Per Pain Protocol Last Admin: 03/02/22 01:34 Dose: 1 tab Documented by: Albuterol Sulfate (Albuterol Sulfate 2.5 Mg/3 Ml Nebulizer) 2.5 mg NEB Q2HP PRN PRN Reason: Shortness Of Breath Aspirin (Aspirin 81 Mg Tab.Chew) 81 mg PO DAILY [facility] Last Admin: 03/02/22 08:21 Dose: 81 mg Documented by: Atorvastatin Calcium (Atorvastatin 10 Mg Tablet) 10 mg PO QDAY [facility] Last Admin: 03/02/22 08:21 Dose: 10 mg Documented by: Dextrose (Dextrose 50% 50 Ml Vial) 0 ml IV UD PRN PRN Reason: Per Sliding Scale Diagnostic Test (Pha) (Accu-Chek 1 Each Strip) 1 each FS ACHS [facility] Last Admin: 03/02/22 07:33 Dose: 1 each Documented by: Diphenhydramine HCl (Diphenhydramine 50 Mg/Ml Vial) 25 mg IV Q6HP PRN PRN Reason: Allergic Symptoms Docusate Sodium (Docusate Sodium 100 Mg Capsule) 100 mg PO BID [facility] Last Admin: 03/02/22 08:21 Dose: 100 mg Documented by: Escitalopram Oxalate (Escitalopram 20 Mg Tablet) 20 mg PO QDAY [facility] Last Admin: 03/02/22 08:21 Dose: 20 mg Documented by: Glucose (Dextrose 31 Gm Oral.Susp) 15 gm PO PRN PRN PRN Reason: Hypoglycemia Hydralazine HCl (Hydralazine 20 Mg/Ml Vial) 10 mg IV Q4-6HP PRN PRN Reason: Hypertension Ceftriaxone Sodium 2 gm/ (Dextrose) 50 mls @ 100 mls/hr IV Q24H [facility] Last Infusion: 03/01/22 08:58 Dose: Infused Documented by: Insulin Glargine (Insulin Glargine, Human 1 Unit/0.01 Ml) 20 unit SQ DAILY [facility] Last Admin: 03/02/22 08:25 Dose: 20 units Documented by: Insulin Human Lispro (Insulin Lispro 1 Unit/0.01 Ml Unit) 0 unit SQ [facility]; Protocol Last Admin: 03/02/22 07:33 Dose: 1 unit Documented by: Iron Carb/Multivit/[place]/Folic Acid (Multivit,Ther Iron,Ca,Fa & Min 1 Tablet) 1 tab PO DAILY [facility] Last Admin: 03/02/22 08:21 Dose: 1 tab Documented by: Lisinopril (Lisinopril 20 Mg Tablet) 20 mg PO DAILY [facility] Last Admin: 03/02/22 08:21 Dose: 20 mg Documented by: Magnesium Hydroxide (Magnesium Hydroxide 30 Ml Oral.Susp) 30 ml PO DAILYP PRN PRN Reason: Constipation Melatonin (Melatonin 3 Mg Tablet) 3 mg PO HSP PRN PRN Reason: Insomnia Metformin HCl (Metformin 500 Mg Tab.Xl.24h) 500 mg PO BIDCC [facility] Last Admin: 03/02/22 07:32 Dose: 500 mg Documented by: Metoprolol Tartrate (Metoprolol Tartrate 25 Mg Tablet) 25 mg PO BID [facility] Last Admin: 03/02/22 08:21 Dose: 25 mg Documented by: Nifedipine (Nifedipine 30 Mg Tab.Xl.24h) 30 mg PO QDAY [facility] Last Admin: 03/02/22 08:21 Dose: 30 mg Documented by: Ondansetron HCl (Ondansetron 4 Mg/2 Ml Vial) 4 mg IV Q6HP PRN PRN Reason: Nausea And Vomiting Pantoprazole Sodium (Pantoprazole 40 Mg Tablet) 40 mg PO QAMAC [facility] Last Admin: 03/02/22 07:32 Dose: 40 mg Documented by: Polyethylene Glycol (Polyethylene Glycol 3350 17 Gm Packet) 17 gm PO DAILY [facility] Last Admin: 03/02/22 08:20 Dose: 17 gm Documented by: Pregabalin (Pregabalin 150 Mg Capsule) 150 mg PO BID [facility] Last Admin: 03/02/22 08:21 Dose: 150 mg Documented by: Senna (Sennosides 1 Tablet) 2 tab PO HS [facility] Last Admin: 03/01/22 20:32 Dose: 2 tab Documented by: Sodium Chloride (0.9 % Sodium Chloride 10 Ml Syringe) 10 ml IV Q8 [facility] Last Admin: 03/02/22 05:22 Dose: 10 ml Documented by: Tramadol HCl (Tramadol 50 Mg Tablet) 50 mg PO Q4-6HP PRN; Protocol PRN Reason: Pain Trazodone HCl (Trazodone Hcl 50 Mg Tablet) 25 mg PO HSP PRN PRN Reason: Insomnia Vancomycin HCl (Vancomycin Per Pharmacy) 1 order IV UD [facility]; Protocol A/P Narrative Plan of Treatment: Diabetic foot ulcer Osteomyelitis of the left fifth toe Patient has been following at the wound clinic and with worsening ulcer foul- smelling exposed bone and edema Underwent x-ray showing evidence of osteomyelitis Plan Patient was admitted and started on vancomycin and ceftriaxone Patient underwent transmetatarsal amputation of the left fifth toe on 02/27/2022 Wound culture, bone culture-Growing MSSA and Streptococcus discontinued vancomycin and continue ceftriaxone Discussed with Dr. Coon and can be changed to p.o. antibiotic upon discharge Type 2 diabetes Sliding scale insulin and restart her home insulin regimen Anxiety and depression Continue citalopram Essential hypertension We will restart her home medication DVT prophylaxis holding any heparin products for the surgery CODE STATUS-full code Time Spent With Patient Time: Total time spent is greater than 50% in coordination of care (as documented) at patient's floor/unit and/or counseling patient: QUALITY VTE Deep Vein Thrombosis/Pulmonary Embolism Present on Admission: No
[2022-03-02] MEDS: VANCOMYCIN 1,500 MG in 0.9 % SODIUM CHLORIDE 500 ML IV SCH (09:56)
[2022-03-02] MEDS: cefTRIAXone 2 GM in DEXTROSE 5% IN WATER 50 ML IV SCH (10:06)
--- NOTE | 2022-03-02 10:56 | General Surgery Progress Note ---
SUBJECTIVE Subjective Patient information: Note initiated : 03/02/22 at 10:45 am Service Date, if different from initiated Date: [] Patient: Sol Thayer 52 y/o F admitted on 02/26/22 for Diabetic Ulcer. Chief Complaint: [] Additional PMFSH (Level 3 Only): Uneventful night. Moderate drainage from wound site. Patient seen with Phani Petty RN and Latonia RN. Dressing removed and wound examined. Constitutional Vitals: Vital Signs Temp Pulse Resp BP Pulse Ox 96.3 F L 82 20 175/86 96 03/02/22 07:49 03/02/22 07:49 03/02/22 07:49 03/02/22 07:49 03/02/22 07:49 Period Temp Pulse Resp BP Sys/Higuera Pulse Ox Last 24 Hr 96.3 F-98.4 F 82-93 16-20 129-175/72-89 92-96 Intake and Output 03/01/22 03/02/22 03/02/22 21:59 05:59 13:59 Intake Total 1500 1300 50 Output Total 400 1800 Balance 1100 -500 50 Weight 278 lb 12.8 oz Intake & Output: Intake & Output 03/01/22 03/02/22 03/02/22 21:59 05:59 13:59 Intake Total 1500 1300 50 Output Total 400 1800 Balance 1100 -500 50 Weight 278 lb 12.8 oz Intake: IV 500 50 Vancomycin 1,500 mg In Sodium 500 Chloride 0.9% 500 ml @ 333.3 mls/hr IV Q12H [facility] Rx#: [id number] Rocephin 2 gm In Dextrose 5% in 50 Water 50 ml @ 100 mls/hr IV Q24H [facility] Rx#:[id number] Oral 1500 800 Output: Void Amount 400 1800 Other: Meal Dinner Percent of Meal Consumed 100% Urine Appearance Clear Clear Urine Color Bright Yellow Bright Yellow Urine Odor Strong Exam: AVSS. No changes YINKA. L/E open surgical wound with stabilized undermined area at 3:00 O'clock. Labs: Malnutrition. Hypoproteinemic. Prealbumin is 11.0 A1C is >7.0 Wound c/s results seen . [place] sensitive staph. Patient NEEDS physical therapy assessment NWB and roll about scooter for ambulation. PO or IV antibiotics per Hospitalist Physician. Needs to be started on wound VAC. Needs to be started on OXANDRIN 5 mg PO BID for 15 days. (For hypoproteinemia) Needs Central Office Operator Supervisor consult and Diabetic Education (as out patient) Needs short term rehab and f/u at wound center for [facility] Continuity of Care. A/P Narrative A/P Narrative: Assessment: Satisfactory post surgery progress at this time. Needs Short term rehab and Physical therapy. Nutrition Repletion (Oxandrin) 5 mg PO BID for 15 days. Antibiotics per Hospitalist Physician. Plan: Wound care as discussed with wound care nurse. Storm Window Installer / SW to assist with D/C planning. Plan of Treatment: Diabetic foot ulcer Osteomyelitis of the left fifth toe Patient has been following at the wound clinic and with worsening ulcer foul- smelling exposed bone and edema Underwent x-ray showing evidence of osteomyelitis Plan Patient was admitted and started on vancomycin and ceftriaxone Patient underwent transmetatarsal amputation of the left fifth toe on 02/27/2022 Wound culture, bone culture-Growing MSSA and Streptococcus discontinued vancomycin and continue ceftriaxone Discussed with Dr. Coon and can be changed to p.o. antibiotic upon di mike Type 2 diabetes Sliding scale insulin and restart her home insulin regimen Anxiety and depression Continue citalopram Essential hypertension We will restart her home medication DVT prophylaxis holding any heparin products for the surgery CODE STATUS-full code Time Spent With Patient Time: Total time spent is greater than 50% in coordination of care (as documented) at patient's floor/unit and/or counseling patient:
[2022-03-02] MEDS: SENNOSIDES 1 TABLET PO SCH (21:58)
[2022-03-03] MEDS: 0.9 % SODIUM CHLORIDE 10 ML SYRINGE IV SCH ×3 (05:03→20:52)
[2022-03-03 06:33] LABS: Basophils # (Auto) 0.06 K/mcL (0.00-0.30); Basophils % (Auto) 0.8 % (0.0-2.0); Eosinophils # (Auto) 0.34 K/mcL (0.00-0.70); Eosinophils % (Auto) 4.3 % (0.0-7.0); Hematocrit 43.6 % (34.1-44.9); Hemoglobin 13.4 g/dL (11.2-15.7); Lymphocytes # (Auto) 2.56 K/mcL (1.50-4.80); Lymphocytes % (Auto) 32.5 % (15.5-49.0); Mean Cell Volume 92.4 fL (80.0-100.0); Mean Corpuscular HGB Conc 30.7 g/dL (31.0-36.0); Mean Platelet Volume 9.5 fL (7.4-10.4); Monocytes # (Auto) 0.54 K/mcL (0.10-0.90); Monocytes % (Auto) 6.9 % (1.0-12.0); Neutrophils % (Auto) 54.6 % (38.0-78.0); Platelet Count 312 K/mcL (140-440); RBC 4.72 M/mcL (3.59-5.38); Red Cell Distribution Width 14.8 % (11.5-14.5); WBC 7.9 K/mcL (4.5-11.0)
[2022-03-03 07:04] LABS: ALT/SGPT 34 U/L (<40); AST/SGOT 29 U/L (<32); Albumin 3.5 gm/dL (3.2-5.2); Albumin/Globulin Ratio 0.9 (1.0-2.3); Alkaline Phosphatase 109 U/L (39-117); Bilirubin,Total 0.3 mg/dL (0.1-1.0); Blood Urea Nitrogen 13 mg/dL (6-20); Calcium 9.7 mg/dL (8.6-10.4); Carbon Dioxide 25 mmol/L (22-30); Chloride 104 mmol/L (96-108); Glomerular Filtration Rate 84; Glucose 174 mg/dL (70-105)
[2022-03-03] MEDS: PANTOPRAZOLE 40 MG TABLET PO SCH (07:27)
[2022-03-03] MEDS: INSULIN LISPRO 1 UNIT/0.01 ML UNIT SQ SCH ×4 (07:27→20:41)
[2022-03-03] MEDS: metFORMIN 500 MG TAB.XL.24H PO SCH ×2 (07:27→17:04)
[2022-03-03] MEDS ORDERED: cefTRIAXone 2 GM VIAL ONE (08:57)
[2022-03-03] MEDS ORDERED: ENOXAPARIN 40 MG/0.4 ML SYRINGE SQ SCH (09:00)
[2022-03-03] MEDS: ASPIRIN 81 MG TAB.CHEW PO SCH (09:01)
[2022-03-03] MEDS: MULTIVIT,THER IRON,CA,FA & MIN 1 TABLET PO SCH (09:01)
[2022-03-03] MEDS: NIFEdipine 30 MG TAB.XL.24H PO SCH (09:02)
[2022-03-03] MEDS: LISINOPRIL 20 MG TABLET PO SCH (09:02)
[2022-03-03] MEDS: ATORVASTATIN 10 MG TABLET PO SCH (09:02)
[2022-03-03] MEDS: ESCITALOPRAM 20 MG TABLET PO SCH (09:02)
[2022-03-03] MEDS: PREGABALIN 150 MG CAPSULE PO SCH ×2 (09:02→20:52)
[2022-03-03] MEDS: METOPROLOL TARTRATE 25 MG TABLET PO SCH ×2 (09:02→20:52)
[2022-03-03] MEDS: DOCUSATE SODIUM 100 MG CAPSULE PO SCH ×2 (09:13→20:40)
[2022-03-03] MEDS: POLYETHYLENE GLYCOL 3350 17 GM PACKET PO SCH (09:13)
[2022-03-03] MEDS: INSULIN GLARGINE, HUMAN 1 UNIT/0.01 ML SQ SCH (09:44)
[2022-03-03] MEDS: cefTRIAXone 2 GM in DEXTROSE 5% IN WATER 50 ML IV SCH (09:48)
[2022-03-03] MEDS: HYDROcodone/APAP 5/325MG TABLET PO PRN ×2 (10:59→20:54)
--- NOTE | 2022-03-03 12:03 | Internal Med Progress Note ---
SUBJECTIVE Subjective Patient information: Note initiated : 03/03/22 at 12:00 pm Service Date, if different from initiated Date: [] Patient: Sol Thayer 52 y/o F admitted on 02/26/22 for Diabetic Ulcer. Chief Complaint: [] Interval history: Interval history: 52-year-old female with uncontrolled type 2 diabetes, obesity, hyperlipidemia, hypertension probable sleep apnea probable obstructive airway disease was brought to the ER from the wound care clinic for further management of osteomyelitis. Patient was evaluated at the clinic has been having worsening swelling redness around the fifth toe of the left foot where she had the ulcer for the last few weeks which has been progressively worsening with the bone exposure. 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 02/[address] Coon and planning for surgery this afternoon Continue vancomycin and ceftriaxone 02/28 Patient underwent wound debridement and transmetatarsal amputation of the left fifth toe Postsurgically patient is doing well Continue IV antibiotics Pending cultures 03/01 Bone culture growing Staphylococcus further sensitivity pending Continue IV antibiotics 03/[address] Coon and he recommended nonweightbearing and preferably send the patient to rehab due to her obesity and nonweightbearing status and wound care needs Vancomycin discontinued Wound culture growing MSSA and Streptococcus-we will keep the ceftriaxone But can be changed to p.o. antibiotic upon discharge as per Dr. Coon 03/03: Patient is afebrile overnight. No leukocytosis. Again, intraoperative wound culture growing MSSA and strep. Continue Rocephin. Patient denies any pain of her left foot. Fasting blood sugar above 180s. Continue insulin therapy for tight guesstimate controlled. Continue Rocephin as the antibiotics for her diabetic foot osteomyelitis. Okay to switch to oral antibiotics such as clindamycin upon discharge. Pending inpatient rehab facility placement, right now is medically ready. Constitutional Vitals: Vital Signs Temp Pulse Resp BP Pulse Ox 37.1 C 84 22 153/92 95 03/03/22 07:07 03/03/22 07:07 03/03/22 07:07 03/03/22 07:07 03/03/22 07:07 Period Temp Pulse Resp BP Sys/Higuera Pulse Ox Last 24 Hr 36.2 C-37.1 C 77-88 18-22 129-163/75-92 92-96 Intake and Output 03/02/22 03/03/22 03/03/22 21:59 05:59 13:59 Intake Total 1360 300 240 Output Total 1225 1150 500 Balance 135 -850 -260 Weight 124.375 kg Intake & Output: Intake & Output 03/02/22 03/03/22 03/03/22 21:59 05:59 13:59 Intake Total 1360 300 240 Output Total 1225 1150 500 Balance 135 -850 -260 Weight 124.375 kg Intake: Oral 1360 300 240 Output: Void Amount 1225 1150 500 Other: Meal Dinner Breakfast Percent of Meal Consumed 100% 100% Feeding Ability Independent Urine Appearance Clear Clear Urine Color Bright Yellow Bright Yellow Dark Yellow Urine Odor Normal Stool Size Moderate Copious Stool Color Brown Brown Yellow Stool Consistency Soft Soft Formed Formed Liquid # Bowel Movements 1 2 Head Head exam: Present atraumatic and normal inspection Eye Eye exam: Present normal appearance ENT ENT exam: Present mucous membranes moist, normal exam and normal external ear exam Neck Neck exam: Present normal inspection Respiratory Respiratory exam: Present normal respiratory exam Cardiovascular Cardiovascular exam: Present normal rate and rhythm GI/Abdominal GI/Abdominal exam: Present normal bowel sounds Extremities Exam Extremities exam: Present full ROM; Absent normal inspection Additional comments: Left foot covered by surgical dressing/soft cast Back Exam Back exam: Present normal inspection Neurological Exam Neurological exam: Present alert and oriented X3 Skin Skin exam: Present intact and warm OBJ DATA Labs CBC & Chem 7: 03/03/22 05:09 03/03/22 05:09 Labs: Abnormal Lab Results 03/03/22 03/03/22 03/02/22 05:09 05:09 08:01 MCHC 30.7 L RDW 14.8 H Immature Gran % (Auto) 0.9 H Immature Gran # 0.07 H BUN Glucose 174 H Hemoglobin A1c Globulin 4.0 H Albumin/Globulin Ratio 0.9 L Prealbumin Vancomycin Trough 20.0 H* 03/02/22 03/02/22 03/01/22 05:17 05:17 05:13 MCHC 30.3 L RDW 14.9 H Immature Gran % (Auto) Immature Gran # BUN 22 H Glucose 179 H 232 H Hemoglobin A1c 7.8 H Globulin 3.8 H 3.9 H Albumin/Globulin Ratio 0.9 L 0.8 L Prealbumin 11.1 L Vancomycin Trough 03/01/22 05:13 MCHC RDW 15.3 H Immature Gran % (Auto) Immature Gran # BUN Glucose Hemoglobin A1c Globulin Albumin/Globulin Ratio Prealbumin Vancomycin Trough Meds: Medications Acetaminophen (Acetaminophen 325 Mg Tablet) 650 mg PO Q6HP PRN; Protocol PRN Reason: Per Pain Protocol/Fever > 101 Last Admin: 03/02/22 18:06 Dose: 650 mg Documented by: Hydrocodone Bitart/Acetaminophen (Hydrocodone/Apap 5/325mg Tablet) 1 tab PO Q4HP PRN; Protocol PRN Reason: Per Pain Protocol Last Admin: 03/03/22 10:59 Dose: 1 tab Documented by: Albuterol Sulfate (Albuterol Sulfate 2.5 Mg/3 Ml Nebulizer) 2.5 mg NEB Q2HP PRN PRN Reason: Shortness Of Breath Aspirin (Aspirin 81 Mg Tab.Chew) 81 mg PO DAILY [facility] Last Admin: 03/03/22 09:01 Dose: 81 mg Documented by: Atorvastatin Calcium (Atorvastatin 10 Mg Tablet) 10 mg PO QDAY [facility] Last Admin: 03/03/22 09:02 Dose: 10 mg Documented by: Dextrose (Dextrose 50% 50 Ml Vial) 0 ml IV UD PRN PRN Reason: Per Sliding Scale Diagnostic Test (Pha) (Accu-Chek 1 Each Strip) 1 each FS ACHS [facility] Last Admin: 03/03/22 11:02 Dose: 1 each Documented by: Diphenhydramine HCl (Diphenhydramine 50 Mg/Ml Vial) 25 mg IV Q6HP PRN PRN Reason: Allergic Symptoms Docusate Sodium (Docusate Sodium 100 Mg Capsule) 100 mg PO BID [facility] Last Admin: 03/03/22 09:13 Dose: Not Given Documented by: Enoxaparin Sodium (Enoxaparin 40 Mg/0.4 Ml Syringe) 40 mg SQ BID [facility] Escitalopram Oxalate (Escitalopram 20 Mg Tablet) 20 mg PO QDAY [facility] Last Admin: 03/03/22 09:02 Dose: 20 mg Documented by: Glucose (Dextrose 31 Gm Oral.Susp) 15 gm PO PRN PRN PRN Reason: Hypoglycemia Hydralazine HCl (Hydralazine 20 Mg/Ml Vial) 10 mg IV Q4-6HP PRN PRN Reason: Hypertension Ceftriaxone Sodium 2 gm/ (Dextrose) 50 mls @ 100 mls/hr IV Q24H [facility] Last Admin: 03/03/22 09:48 Dose: Not Given Documented by: Insulin Glargine (Insulin Glargine, Human 1 Unit/0.01 Ml) 20 unit SQ DAILY [facility] Last Admin: 03/03/22 09:44 Dose: 25 units Documented by: Insulin Human Lispro (Insulin Lispro 1 Unit/0.01 Ml Unit) 0 unit SQ ACHS [facility]; Protocol Last Admin: 03/03/22 11:12 Dose: 2 unit Documented by: Iron Carb/Multivit/[place]/Folic Acid (Multivit,Ther Iron,Ca,Fa & Min 1 Tablet) 1 tab PO DAILY [facility] Last Admin: 03/03/22 09:01 Dose: 1 tab Documented by: Lisinopril (Lisinopril 20 Mg Tablet) 20 mg PO DAILY [facility] Last Admin: 03/03/22 09:02 Dose: 20 mg Documented by: Magnesium Hydroxide (Magnesium Hydroxide 30 Ml Oral.Susp) 30 ml PO DAILYP PRN PRN Reason: Constipation Melatonin (Melatonin 3 Mg Tablet) 3 mg PO HSP PRN PRN Reason: Insomnia Metformin HCl (Metformin 500 Mg Tab.Xl.24h) 500 mg PO BIDCC [facility] Last Admin: 03/03/22 07:27 Dose: 500 mg Documented by: Metoprolol Tartrate (Metoprolol Tartrate 25 Mg Tablet) 25 mg PO BID [facility] Last Admin: 03/03/22 09:02 Dose: 25 mg Documented by: Nifedipine (Nifedipine 30 Mg Tab.Xl.24h) 30 mg PO QDAY [facility] Last Admin: 03/03/22 09:02 Dose: 30 mg Documented by: Ondansetron HCl (Ondansetron 4 Mg/2 Ml Vial) 4 mg IV Q6HP PRN PRN Reason: Nausea And Vomiting Pantoprazole Sodium (Pantoprazole 40 Mg Tablet) 40 mg PO QAMAC [facility] Last Admin: 03/03/22 07:27 Dose: 40 mg Documented by: Polyethylene Glycol (Polyethylene Glycol 3350 17 Gm Packet) 17 gm PO DAILY [facility] Last Admin: 03/03/22 09:13 Dose: Not Given Documented by: Pregabalin (Pregabalin 150 Mg Capsule) 150 mg PO BID [facility] Last Admin: 03/03/22 09:02 Dose: 150 mg Documented by: Senna (Sennosides 1 Tablet) 2 tab PO HS [facility] Last Admin: 03/02/22 21:58 Dose: Not Given Documented by: Sodium Chloride (0.9 % Sodium Chloride 10 Ml Syringe) 10 ml IV Q8 [facility] Last Admin: 03/03/22 05:03 Dose: Not Given Documented by: Tramadol HCl (Tramadol 50 Mg Tablet) 50 mg PO Q4-6HP PRN; Protocol PRN Reason: Pain Trazodone HCl (Trazodone Hcl 50 Mg Tablet) 25 mg PO HSP PRN PRN Reason: Insomnia A/P Assessment and plan (1) Diabetic foot ulcer associated with type 2 diabetes mellitus: Status: Acute (2) Osteomyelitis: Status: Acute (3) Essential hypertension: Status: Acute (4) Depression with anxiety: Status: Acute (5) Mixed dyslipidemia: Status: Acute Narrative A/P Narrative: Assessment and Plans: 1. Diabetic foot ulcer with osteomyelitis, status post amputations of the left fifth toe by Dr. Coon 02/27: Intraoperative wound culture: MSSA and strep anginosus Continue Rocephin which can be changed to oral antibiotics such as clindamycin upon discharge Patient is currently pain-free, narcotics available for pain control CBC with auto differential in the morning to trend WBC Metformin, glargine, and correctional scale insulin for tight calcific contro lled Lyrica Pending SNF placement 2. Essential HTN: Metoprolol titrate Nifedipine Lisinopril 3. Mixed dyslipidemia: Continue Lipitor 4. Depression with anxiety: Continue escitalopram GI ppx: PO Protonix DVT ppx: Lovenox Code status: Full Prognosis: stable Disposition: inpatient med surg/ Pending SNF Time Spent With Patient Time: Total time spent is greater than 50% in coordination of care (as documented) at patient's floor/unit and/or counseling patient: Total time spent with greater than 50% in coordination of care (as documented) at patient's floor/unit and/or counseling patient:: 35 - 50 minutes QUALITY VTE Deep Vein Thrombosis/Pulmonary Embolism Present on Admission: No
--- NOTE | 2022-03-03 19:37 | EKG ---
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
[2022-03-03] MEDS: SENNOSIDES 1 TABLET PO SCH (20:41)
[2022-03-03] MEDS: ENOXAPARIN 40 MG/0.4 ML SYRINGE SQ SCH (20:51)
[2022-03-04] MEDS: 0.9 % SODIUM CHLORIDE 10 ML SYRINGE IV SCH ×3 (05:29→21:43)
[2022-03-04] MEDS: INSULIN LISPRO 1 UNIT/0.01 ML UNIT SQ SCH ×4 (07:23→21:43)
[2022-03-04] MEDS: PANTOPRAZOLE 40 MG TABLET PO SCH (07:23)
[2022-03-04] MEDS: MULTIVIT,THER IRON,CA,FA & MIN 1 TABLET PO SCH (08:39)
[2022-03-04] MEDS: ASPIRIN 81 MG TAB.CHEW PO SCH (08:39)
[2022-03-04] MEDS: ATORVASTATIN 10 MG TABLET PO SCH (08:39)
[2022-03-04] MEDS: metFORMIN 500 MG TAB.XL.24H PO SCH ×2 (08:39→16:37)
[2022-03-04] MEDS: LISINOPRIL 20 MG TABLET PO SCH (08:40)
[2022-03-04] MEDS: METOPROLOL TARTRATE 25 MG TABLET PO SCH ×2 (08:42→21:42)
[2022-03-04] MEDS: PREGABALIN 150 MG CAPSULE PO SCH ×2 (08:42→21:42)
[2022-03-04] MEDS: NIFEdipine 30 MG TAB.XL.24H PO SCH (08:42)
[2022-03-04] MEDS: DOCUSATE SODIUM 100 MG CAPSULE PO SCH ×2 (08:43→21:33)
[2022-03-04] MEDS: ESCITALOPRAM 20 MG TABLET PO SCH (08:43)
[2022-03-04] MEDS: ENOXAPARIN 40 MG/0.4 ML SYRINGE SQ SCH ×2 (08:43→21:42)
[2022-03-04] MEDS: POLYETHYLENE GLYCOL 3350 17 GM PACKET PO SCH (08:43)
[2022-03-04] MEDS: cefTRIAXone 2 GM in DEXTROSE 5% IN WATER 50 ML IV SCH (08:51)
[2022-03-04] MEDS: INSULIN GLARGINE, HUMAN 1 UNIT/0.01 ML SQ SCH (08:51)
--- NOTE | 2022-03-04 09:39 | General Surgery Progress Note ---
SUBJECTIVE Subjective Patient information: Note initiated : 03/04/22 at 9:34 am Service Date, if different from initiated Date: [] Patient: Sol Thayer 52 y/o F admitted on 02/26/22 for Diabetic Ulcer. Chief Complaint: [] Additional PMFSH (Level 3 Only): Patient seen with Phani Hopper RN. WOUND examined and plan of care reviewed. Discussed with Dr. Avelar, Hospitalist Physician. Constitutional Vitals: Vital Signs Temp Pulse Resp BP Pulse Ox 99.3 F H 74 22 154/94 94 03/04/22 07:39 03/04/22 07:39 03/04/22 07:39 03/04/22 07:39 03/04/22 07:39 Period Temp Pulse Resp BP Sys/Higuera Pulse Ox Last 24 Hr 97.0 F-99.3 F 74-87 20-22 134-154/68-94 93-94 Intake and Output 03/03/22 03/04/22 03/04/22 21:59 05:59 13:59 Intake Total 640 200 480 Output Total 900 950 Balance -260 -750 480 Weight 270 lb Intake & Output: Intake & Output 03/03/22 03/04/22 03/04/22 21:59 05:59 13:59 Intake Total 640 200 480 Output Total 900 950 Balance -260 -750 480 Weight 270 lb Intake: Nourishment/Supplement quantity 240 (ml) Oral 640 200 240 Output: Void Amount 900 950 Other: Meal Dinner Breakfast Percent of Meal Consumed 100% 100% Feeding Ability Independent Independent Nourishment/Supplement name Kalin Urine Appearance Clear Clear Urine Color Bright Yellow Bright Yellow Urine Odor Normal Exam: AVSS. Unremarkable YINKA. No acute interval changes. L/E: Wound site has soft adherent slough on surface. Wound base has areas of granulation. Mild to moderate drainage. Strike thru staining of gauze. Labs. No leucocytosis. K/Cr is normal Blood glucose tending down. A1C over 7 Prealbumin is 11. On Kalin supplements. Tolerating diet. TONYA. No urinary symptoms. Seen by Physical Therapy. NWB and ambulatory. Keen to use roll about scooter. Awaits D/C planning. On IV antibiotics. Per Hospitalist. A/P Narrative A/P Narrative: Assessment: Satisfactory post surgical progress. Continues to has soft slough and drainage. Recommend use HB and change dressings PRN. When there is strike thru drainage staining on bandage. Plan: Continue ongoing care / treatment. Following patient whilst she is in hospital. Time Spent With Patient Time: Total time spent is greater than 50% in coordination of care (as documented) at patient's floor/unit and/or counseling patient:
[2022-03-04] MEDS: HYDROcodone/APAP 5/325MG TABLET PO PRN (13:25)
--- NOTE | 2022-03-04 17:08 | Internal Med Progress Note ---
SUBJECTIVE Subjective Patient information: Note initiated : 03/04/22 at 5:04 pm Service Date, if different from initiated Date: [] Patient: Sol Thayer 52 y/o F admitted on 02/26/22 for Diabetic Ulcer. Chief Complaint: [] Interval history: Interval history: 52-year-old female with uncontrolled type 2 diabetes, obesity, hyperlipidemia, hypertension probable sleep apnea probable obstructive airway disease was brought to the ER from the wound care clinic for further management of osteomyelitis. Patient was evaluated at the clinic has been having worsening swelling redness around the fifth toe of the left foot where she had the ulcer for the last few weeks which has been progressively worsening with the bone exposure. Patient was evaluated in the ER and x-ray showing evidence of osteomyelitis and discussed with the wound care surgeon and juvenile court liaison planning for surgery. 02/[address] Coon and planning for surgery this afternoon Continue vancomycin and ceftriaxone 02/28 Patient underwent wound debridement and transmetatarsal amputation of the left fifth toe Postsurgically patient is doing well Continue IV antibiotics Pending cultures 03/01 Bone culture growing Staphylococcus further sensitivity pending Continue IV antibiotics 03/[address] Coon and he recommended nonweightbearing and preferably send the patient to rehab due to her obesity and nonweightbearing status and wound care needs Vancomycin discontinued Wound culture growing MSSA and Streptococcus-we will keep the ceftriaxone But can be changed to p.o. antibiotic upon discharge as per Dr. Coon 03/03: Patient is afebrile overnight. No leukocytosis. Again, intraoperative wound culture growing MSSA and strep. Continue Rocephin. Patient denies any pain of her left foot. Fasting blood sugar above 180s. Continue insulin therapy for tight guesstimate controlled. Continue Rocephin as the antibiotics for her diabetic foot osteomyelitis. Okay to switch to oral antibiotics such as clindamycin upon discharge. Pending inpatient rehab facility placement, right now is medically ready. 03/04: No major overnight events. Fasting blood glucose 174. Patient is afebrile overnight. No leukocytosis. Patient denies any pain of her left foot. Denies fever or chills. Continue insulin therapy for tight guesstimate control. Continue Rocephin as the antibiotics for her diabetic foot osteomyelitis. Okay to switch to oral antibiotics such as clindamycin upon discharge. Pending inpatient rehab facility placement, right now is medically ready. Constitutional Vitals: Vital Signs Temp Pulse Resp BP Pulse Ox 36.3 C 72 22 140/82 95 03/04/22 16:00 03/04/22 16:00 03/04/22 16:00 03/04/22 16:00 03/04/22 16:00 Period Temp Pulse Resp BP Sys/Higuera Pulse Ox Last 24 Hr 36.1 C-37.4 C 72-86 20-22 129-154/68-94 93-95 Intake and Output 03/04/22 03/04/22 03/04/22 05:59 13:59 21:59 Intake Total 200 1280 Output Total 950 1000 Balance -750 280 Intake & Output: Intake & Output 03/04/22 03/04/22 03/04/22 05:59 13:59 21:59 Intake Total 200 1280 Output Total 950 1000 Balance -750 280 Intake: Nourishment/Supplement quantity 240 (ml) Oral 200 1040 Output: Void Amount 950 1000 Other: Meal Breakfast Percent of Meal Consumed 100% Feeding Ability Independent Nourishment/Supplement name Kalin Urine Appearance Clear Urine Color Bright Yellow Straw Urine Odor Normal Head Head exam: Present atraumatic and normal inspection Eye Eye exam: Present normal appearance ENT ENT exam: Present mucous membranes moist, normal exam and normal external ear exam Neck Neck exam: Present normal inspection Respiratory Respiratory exam: Present normal respiratory exam Cardiovascular Cardiovascular exam: Present normal rate and rhythm GI/Abdominal GI/Abdominal exam: Present normal bowel sounds Extremities Exam Extremities exam: Present full ROM; Absent normal inspection Additional comments: Left 5th toe surgically amputated Back Exam Back exam: Present normal inspection Neurological Exam Neurological exam: Present alert and oriented X3 Skin Skin exam: Present intact and warm OBJ DATA Labs CBC & Chem 7: 03/03/22 05:09 03/03/22 05:09 Labs: Abnormal Lab Results 03/03/22 03/03/22 03/02/22 05:09 05:09 08:01 MCHC 30.7 L RDW 14.8 H Immature Gran % (Auto) 0.9 H Immature Gran # 0.07 H Glucose 174 H Hemoglobin A1c Globulin 4.0 H Albumin/Globulin Ratio 0.9 L Prealbumin Vancomycin Trough 20.0 H* 03/02/22 03/02/22 05:17 05:17 MCHC 30.3 L RDW 14.9 H Immature Gran % (Auto) Immature Gran # Glucose 179 H Hemoglobin A1c 7.8 H Globulin 3.8 H Albumin/Globulin Ratio 0.9 L Prealbumin 11.1 L Vancomycin Trough Meds: Medications Acetaminophen (Acetaminophen 325 Mg Tablet) 650 mg PO Q6HP PRN; Protocol PRN Reason: Per Pain Protocol/Fever > 101 Last Admin: 03/02/22 18:06 Dose: 650 mg Documented by: Hydrocodone Bitart/Acetaminophen (Hydrocodone/Apap 5/325mg Tablet) 1 tab PO Q4HP PRN; Protocol PRN Reason: Per Pain Protocol Last Admin: 03/04/22 13:25 Dose: 1 tab Documented by: Albuterol Sulfate (Albuterol Sulfate 2.5 Mg/3 Ml Nebulizer) 2.5 mg NEB Q2HP PRN PRN Reason: Shortness Of Breath Aspirin (Aspirin 81 Mg Tab.Chew) 81 mg PO DAILY [facility] Last Admin: 03/04/22 08:39 Dose: 81 mg Documented by: Atorvastatin Calcium (Atorvastatin 10 Mg Tablet) 10 mg PO QDAY [facility] Last Admin: 03/04/22 08:39 Dose: 10 mg Documented by: Dextrose (Dextrose 50% 50 Ml Vial) 0 ml IV UD PRN PRN Reason: Per Sliding Scale Diagnostic Test (Pha) (Accu-Chek 1 Each Strip) 1 each FS ACHS [facility] Last Admin: 03/04/22 16:37 Dose: 1 each Documented by: Diphenhydramine HCl (Diphenhydramine 50 Mg/Ml Vial) 25 mg IV Q6HP PRN PRN Reason: Allergic Symptoms Docusate Sodium (Docusate Sodium 100 Mg Capsule) 100 mg PO BID [facility] Last Admin: 03/04/22 08:43 Dose: Not Given Documented by: Enoxaparin Sodium (Enoxaparin 40 Mg/0.4 Ml Syringe) 40 mg SQ BID [facility] Last Admin: 03/04/22 08:43 Dose: 40 mg Documented by: Escitalopram Oxalate (Escitalopram 20 Mg Tablet) 20 mg PO QDAY [facility] Last Admin: 03/04/22 08:43 Dose: 20 mg Documented by: Glucose (Dextrose 31 Gm Oral.Susp) 15 gm PO PRN PRN PRN Reason: Hypoglycemia Hydralazine HCl (Hydralazine 20 Mg/Ml Vial) 10 mg IV Q4-6HP PRN PRN Reason: Hypertension Ceftriaxone Sodium 2 gm/ (Dextrose) 50 mls @ 100 mls/hr IV Q24H [facility] Last Admin: 03/04/22 08:51 Dose: 100 mls/hr Documented by: Insulin Glargine (Insulin Glargine, Human 1 Unit/0.01 Ml) 20 unit SQ DAILY [facility] Last Admin: 03/04/22 08:51 Dose: 20 units Documented by: Insulin Human Lispro (Insulin Lispro 1 Unit/0.01 Ml Unit) 0 unit SQ ACHS [facility]; Protocol Last Admin: 03/04/22 16:37 Dose: 3 unit Documented by: Iron Carb/Multivit/[place]/Folic Acid (Multivit,Ther Iron,Ca,Fa & Min 1 Tablet) 1 tab PO DAILY [facility] Last Admin: 03/04/22 08:39 Dose: 1 tab Documented by: Lisinopril (Lisinopril 20 Mg Tablet) 20 mg PO DAILY [facility] Last Admin: 03/04/22 08:40 Dose: 20 mg Documented by: Magnesium Hydroxide (Magnesium Hydroxide 30 Ml Oral.Susp) 30 ml PO DAILYP PRN PRN Reason: Constipation Melatonin (Melatonin 3 Mg Tablet) 3 mg PO HSP PRN PRN Reason: Insomnia Metformin HCl (Metformin 500 Mg Tab.Xl.24h) 500 mg PO BIDCC [facility] Last Admin: 03/04/22 16:37 Dose: 500 mg Documented by: Metoprolol Tartrate (Metoprolol Tartrate 25 Mg Tablet) 25 mg PO BID [facility] Last Admin: 03/04/22 08:42 Dose: 25 mg Documented by: Nifedipine (Nifedipine 30 Mg Tab.Xl.24h) 30 mg PO QDAY [facility] Last Admin: 03/04/22 08:42 Dose: 30 mg Documented by: Ondansetron HCl (Ondansetron 4 Mg/2 Ml Vial) 4 mg IV Q6HP PRN PRN Reason: Nausea And Vomiting Pantoprazole Sodium (Pantoprazole 40 Mg Tablet) 40 mg PO QAMAC [facility] Last Admin: 03/04/22 07:23 Dose: 40 mg Documented by: Polyethylene Glycol (Polyethylene Glycol 3350 17 Gm Packet) 17 gm PO DAILY [facility] Last Admin: 03/04/22 08:43 Dose: Not Given Documented by: Pregabalin (Pregabalin 150 Mg Capsule) 150 mg PO BID [facility] Last Admin: 03/04/22 08:42 Dose: 150 mg Documented by: Senna (Sennosides 1 Tablet) 2 tab PO HS [facility] Last Admin: 03/03/22 20:41 Dose: Not Given Documented by: Sodium Chloride (0.9 % Sodium Chloride 10 Ml Syringe) 10 ml IV Q8 [facility] Last Admin: 03/04/22 13:11 Dose: 10 ml Documented by: Tramadol HCl (Tramadol 50 Mg Tablet) 50 mg PO Q4-6HP PRN; Protocol PRN Reason: Pain Trazodone HCl (Trazodone Hcl 50 Mg Tablet) 25 mg PO HSP PRN PRN Reason: Insomnia A/P Assessment and plan (1) Diabetic foot ulcer associated with type 2 diabetes mellitus: Status: Acute (2) Osteomyelitis: Status: Acute (3) Essential hypertension: Status: Acute (4) Depression with anxiety: Status: Acute (5) Mixed dyslipidemia: Status: Acute Narrative A/P Narrative: Assessment and Plans: 1. Diabetic foot ulcer with osteomyelitis, status post amputations of the left fifth toe by Dr. Coon 02/27: Intraoperative wound culture: MSSA and strep anginosus Continue Rocephin which can be changed to oral antibiotics such as clindamycin upon discharge Patient is currently pain-free, narcotics available for pain control CBC with auto differential in the morning to trend WBC Metformin, glargine, and correctional scale insulin for tight calcific controlled Lyrica Pending SNF placement 2. Essential HTN: Metoprolol tartrate Nifedipine Lisinopril 3. Mixed dyslipidemia: Continue Lipitor 4. Depression with anxiety: Continue escitalopram GI ppx: PO Protonix DVT ppx: Lovenox Code status: Full Prognosis: stable Disposition: inpatient med surg/ Pending SNF Time Spent With Patient Time: Total time spent is greater than 50% in coordination of care (as documented) at patient's floor/unit and/or counseling patient: Total time spent with greater than 50% in coordination of care (as documented) at patient's floor/unit and/or counseling patient:: 35 - 50 minutes QUALITY VTE Deep Vein Thrombosis/Pulmonary Embolism Present on Admission: No
[2022-03-04] MEDS: SENNOSIDES 1 TABLET PO SCH (21:33)
[2022-03-05] MEDS: PANTOPRAZOLE 40 MG TABLET PO SCH (07:33)
[2022-03-05] MEDS: 0.9 % SODIUM CHLORIDE 10 ML SYRINGE IV SCH ×5 (07:35→20:58)
[2022-03-05] MEDS: INSULIN LISPRO 1 UNIT/0.01 ML UNIT SQ SCH ×4 (07:55→20:57)
[2022-03-05] MEDS: INSULIN GLARGINE, HUMAN 1 UNIT/0.01 ML SQ SCH (07:56)
[2022-03-05] MEDS ORDERED: 0.9 % SODIUM CHLORIDE 10 ML SYRINGE IV PRN (08:39)
[2022-03-05] MEDS: HYDROcodone/APAP 5/325MG TABLET PO PRN ×3 (08:44→20:57)
[2022-03-05] MEDS: MULTIVIT,THER IRON,CA,FA & MIN 1 TABLET PO SCH (08:45)
[2022-03-05] MEDS: ENOXAPARIN 40 MG/0.4 ML SYRINGE SQ SCH ×2 (08:45→20:57)
[2022-03-05] MEDS: ASPIRIN 81 MG TAB.CHEW PO SCH (08:45)
[2022-03-05] MEDS: ESCITALOPRAM 20 MG TABLET PO SCH (08:45)
[2022-03-05] MEDS: cefTRIAXone 2 GM in DEXTROSE 5% IN WATER 50 ML IV SCH (08:45)
[2022-03-05] MEDS: POLYETHYLENE GLYCOL 3350 17 GM PACKET PO SCH (08:45)
[2022-03-05] MEDS: NIFEdipine 30 MG TAB.XL.24H PO SCH (08:46)
[2022-03-05] MEDS: metFORMIN 500 MG TAB.XL.24H PO SCH ×2 (08:46→17:48)
[2022-03-05] MEDS: METOPROLOL TARTRATE 25 MG TABLET PO SCH ×2 (08:46→20:57)
[2022-03-05] MEDS: PREGABALIN 150 MG CAPSULE PO SCH ×2 (08:46→20:57)
[2022-03-05] MEDS: ATORVASTATIN 10 MG TABLET PO SCH (08:46)
[2022-03-05] MEDS: LISINOPRIL 20 MG TABLET PO SCH (08:46)
[2022-03-05] MEDS: DOCUSATE SODIUM 100 MG CAPSULE PO SCH ×2 (08:50→20:58)
--- NOTE | 2022-03-05 09:33 | General Surgery Progress Note ---
SUBJECTIVE Subjective Patient information: Note initiated : 03/05/22 at 9:24 am Service Date, if different from initiated Date: [] Patient: Sol Thayer 52 y/o F admitted on 02/26/22 for Diabetic Ulcer. Chief Complaint: [] Additional PMFSH (Level 3 Only): Patient seen along with Phani Hopper RN. Comfortable. Had an uneventful night. She has a roll about scooter to offload LEFT foot. Constitutional Vitals: Vital Signs Temp Pulse Resp BP Pulse Ox 97.0 F 79 18 178/80 94 03/05/22 08:00 03/05/22 08:00 03/05/22 08:00 03/05/22 08:00 03/05/22 08:00 Period Temp Pulse Resp BP Sys/Higuera Pulse Ox Last 24 Hr 97.0 F-98.6 F 70-84 16- 129-178/71-83 93-96 Intake and Output 03/04/22 03/05/22 03/05/22 21:59 05:59 13:59 Intake Total 1520 175 240 Output Total 1250 800 Balance 270 -625 240 Weight 268 lb 1.6 oz Intake & Output: Intake & Output 03/04/22 03/05/22 03/05/22 21:59 05:59 13:59 Intake Total 1520 175 240 Output Total 1250 800 Balance 270 -625 240 Weight 268 lb 1.6 oz Intake: Oral 1520 175 240 Output: Void Amount 1250 800 Other: Meal Dinner Breakfast Percent of Meal Consumed 100% 100% Feeding Ability Assist with Tray Set Up Independent Urine Appearance Clear Clear Urine Color Bright Yellow Bright Yellow Urine Odor Normal Stool Size Moderate Stool Color Brown Stool Consistency Formed # Bowel Movements 1 Exam: AVSS. No changes YINKA. Local wound care is ongoing. Reviewed: Pathology report. Acute osteomyelitis up to proximal resection of bone. At this time will HOLD OFF on wound VAC. TO continue with ongoing local wound care: (Can be carried out at peripheral hospital) Recommend: IV antibiotics. Daptomycin 5mg/kg QD for 6 weeks. Check biweekly CBC, CMP and CRP PICC line for IV access. Patient already has an appointment at wound care clinic on March 12/2022 A/P Narrative A/P Narrative: Assessment: See detailed note above in Exam Section. Above plan was discussed with Dr. Pui. Hospitalist. Plan: D/C planning and continuity of care per CM. Regular f/u at wound care center after D/C. Time Spent With Patient Time: Total time spent is greater than 50% in coordination of care (as documented) at patient's floor/unit and/or counseling patient: Total time spent with greater than 50% in coordination of care (as documented) at patient's floor/unit and/or counseling patient:: 15 - 24 minutes
--- NOTE | 2022-03-05 11:12 | Discharge Summary ---
Discharge Provider Provider IMPORTANT FOLLOW-UP INFORMATION FOR PCP: Patient information: Note initiated : 03/05/22 at 11:09 am Service Date, if different from initiated Date: [] Patient: Sol Thayer 52 y/o F admitted on 02/26/22 for Diabetic Ulcer. Chief Complaint: [] Date of admission: 02/26/22 18:15 Discharge date: 03/05/22 Primary care physician: Dick Sifuentes PA-C Attending physician on admission: Rufina Sifuentes Consults: 02/26/22 Consult to Physician [CONS] Stat Comment: Consulting Provider: Austin Coon Reason For Exam: Physician to Consult Consult to Physician [CONS] Stat Comment: Consulting Provider: Rufina Sifuentes Reason For Exam: Physician to Consult Attending physician on discharge: Chi Gladis Pui COURSE Hospital Course Hospital course: Interval history: 52-year-old female with uncontrolled type 2 diabetes, obesity, hyperlipidemia, hypertension probable sleep apnea probable obstructive airway disease was brought to the ER from the wound care clinic for further management of osteomyelitis. Patient was evaluated at the clinic has been having worsening swelling redness around the fifth toe of the left foot where she had the ulcer for the last few weeks which has been progressively worsening with the bone exposure. Patient was evaluated in the ER and x-ray showing evidence of osteomyelitis and discussed with the wound care surgeon and solvent plant treater planning for surgery. 02/[address] Coon and planning for surgery this afternoon Continue vancomycin and ceftriaxone 02/28 Patient underwent wound debridement and transmetatarsal amputation of the left fifth toe Postsurgically patient is doing well Continue IV antibiotics Pending cultures 03/01 Bone culture growing Staphylococcus further sensitivity pending Continue IV antibiotics 03/[address] Coon and he recommended nonweightbearing and preferably send the patient to rehab due to her obesity and nonweightbearing status and wound care needs Vancomycin discontinued Wound culture growing MSSA and Streptococcus-we will keep the ceftriaxone But can be changed to p.o. antibiotic upon discharge as per Dr. Coon 03/03: Patient is afebrile overnight. No leukocytosis. Again, intraoperative wound culture growing MSSA and strep. Continue Rocephin. Patient denies any pain of her left foot. Fasting blood sugar above 180s. Continue insulin therapy for tight guesstimate controlled. Continue Rocephin as the antibiotics for her diabetic foot osteomyelitis. Okay to switch to oral antibiotics such as clindamycin upon discharge. Pending inpatient rehab facility placement, right now is medically ready. 03/04: No major overnight events. Fasting blood glucose 174. Patient is afebrile overnight. No leukocytosis. Patient denies any pain of her left foot. Denies fever or chills. Continue insulin therapy for tight guesstimate control. Continue Rocephin as the antibiotics for her diabetic foot osteomyelitis. Okay to switch to oral antibiotics such as clindamycin upon discharge. Pending inpatient rehab facility placement, right now is medically ready. 03/05: Patient is being turned down by or to SNF. Instead patient's would be discharged home. Patient has reached clinical stability. Patient's will be discharged home today with PICC line insertions scheduled for tomorrow as an outpatient procedures. Patient's will start receiving daptomycin starting tomorrow 03/06 for 6 weeks. Patient will be follow-up by general surgeons in a week. We will also arranged for outpatient wound care. We will have frequent labs including CBC CMP and CRP ordered. All questions were answered prior to patient being discharged. Discharge diagnosis: Diabetic foot ulcer with osteomyelitis Time Spent with Patient Time attestation: Total time spent providing and/or coordinating discharge services: Time spent: Greater than 30 minutes EXAM Constitutional Vitals: Temp Pulse Resp BP Pulse Ox 36.1 C 79 18 178/80 94 03/05/22 08:00 03/05/22 08:00 03/05/22 08:00 03/05/22 08:00 03/05/22 08:00 General appearance: cooperative and no acute distress Head Head exam: Present atraumatic and normocephalic Eye Eye exam: Present EOMI and PERRL ENT ENT exam: Present mucous membranes moist, normal exam and normal external ear exam Neck Neck exam: Present normal inspection; Absent lymphadenopathy, tenderness or thyromegaly Respiratory Respiratory exam: Absent accessory muscle use, respiratory distress or wheezes Cardiovascular Cardiovascular exam: Present normal rate and rhythm; Absent JVD GI/Abdominal GI/Abdominal exam: Present normal bowel sounds and soft; Absent organomegaly or tenderness Extremities Exam Extremities exam: Present full ROM and normal capillary refill; Absent normal inspection or tenderness Additional comments: Left fifth toe surgically amputated. Neurological Exam Neurological exam: Present alert, CN II-XII intact and oriented X3; Absent motor sensory deficit Psychiatric Psychiatric exam: Present normal affect and normal mood; Absent anxious or depressed Skin Skin exam: Present dry and intact Discharge Data Data Completed and Pending Labs on day of discharge: Preliminary micro results at discharge 02/27/22 16:50 Gram Stain - Preliminary Foot - Left Anaerobic Culture - Preliminary Discharge Plan Patient/Caregiver Discharge Instructions Activity: increase activity as tolerated Diet: Consistent Carbohydrate Prescriptions: New daptomycin 500 mg recon soln 600 mg IV Q24H Qty: 42 0RF Rx Instructions: administer over 30 mins Continued multivitamin Tablet 1 tab PO QAM 0RF acetaminophen 500 mg Tablet 1,000 mg PO Q6H PRN (Reason: Pain) 0RF nortriptyline 10 mg Capsule 20 mg PO QHS 0RF lisinopril-hydrochlorothiazide 20-25 mg Tablet 1 tab PO QDAY 0RF Humalog KwikPen Insulin 200 unit/mL (3 mL) Insulin Pen 0 unit SUBCUT AC 0RF Rx Instructions: Sliding scale. metformin 1,000 mg Tablet Extended Release 24hr 750 mg PO BID 0RF Ozempic 1 mg/dose (4 mg/3 mL) Pen Injector 1 mg SUBCUT WEEKLY 0RF Rx Instructions: Administered Tuesdays nifedipine 30 mg Tablet Extended Release 24 Hr 30 mg PO QDAY 0RF metoprolol tartrate 25 mg Tablet 25 mg PO BID 0RF Rx Instructions: Patient unsure if this is the dose she takes potassium chloride 10 mEq Capsule, Extended Release 10 meq PO QDAY 0RF polyethylene glycol 3350 [Gavilax] 17 gram Powder In Packet 17 g PO QDAY 0RF atorvastatin 10 mg Tablet 10 mg PO QDAY 0RF aspirin 81 mg Tablet,Delayed Release (Dr/Ec) 81 mg PO QDAY 0RF albuterol sulfate [ProAir HFA] 90 mcg/actuation Hfa Aerosol Inhaler 2 puff INHALATION Q6H PRN (Reason: Shortness Of Breath) 0RF escitalopram oxalate 20 mg Tablet 20 mg PO QDAY 0RF pregabalin 150 mg Capsule 150 mg PO BID 0RF Jardiance 25 mg Tablet 25 mg PO QAM 0RF Tresiba FlexTouch U-200 200 unit/mL (3 mL) Insulin Pen 150 unit SUBCUT QDAY 0RF Discontinued nitrofurantoin macrocrystal 100 mg Capsule 100 mg PO QDAY 0RF Rx Instructions: must administer with a meal/food Other Ambulatory Orders: Complete Blood Count (Q2W) Timeframe: 20220402 Facility: [facility] - Location: Laboratory Ordered By: Davian Avelar Complete Blood Count (Q2W) Timeframe: 20220416 Facility: [facility] - Location: Laboratory Ordered By: Davian Griffith Pui Complete Blood Count (Q2W) Timeframe: 20220430 Facility: [facility] - Location: Laboratory Ordered By: Davian Griffith Pulasha Comprehensive Metabolic Panel (Q2W) Timeframe: 20220402 Facility: [facility] - Location: Laboratory Ordered By: Chi Gladis Pui Comprehensive Metabolic Panel (Q2W) Timeframe: 20220416 Facility: [facility] - Location: Laboratory Ordered By: Davian Griffith [place] Comprehensive Metabolic Panel (Q2W) Timeframe: 20220430 Facility: [facility] - Location: Laboratory Ordered By: Davian Avelar C-Reactive Protein (Q2W) Timeframe: 20220402 Facility: [facility] - Location: Laboratory Ordered By: Davian Griffith Pulasha C-Reactive Protein (Q2W) Timeframe: 20220416 Facility: [facility] - Location: Laboratory Ordered By: Davian Griffith Pulasha C-Reactive Protein (Q2W) Timeframe: 20220430 Facility: [facility] - Location: Laboratory Ordered By: Davian Avelar Wound Care Instructions (CONT) Location: None Selected Ordered By: Austin Coon Rollabout (ONCE) Location: None Selected Ordered By: Austin Coon Follow Up Plan Follow up with: Austin Coon MD [Physician] - 03/12/22 3:40 pm Dick Sifuentes PA-C [Primary Care Provider] - Patient Disposition: Home, Self-Care Prognosis: Fair Rehab Potential: Good I certify that the patient requires SNF services: Yes Overall status at discharge: patient is progressing back to baseline Discharge Orders: Discharge Order (Routine); Ordered 03/05/22 Ordered By: Davian Avelar QUALITY VTE Deep Vein Thrombosis/Pulmonary Embolism Present on Admission: No
[2022-03-05] MEDS: SENNOSIDES 1 TABLET PO SCH (20:58)
[2022-03-06] MEDS: 0.9 % SODIUM CHLORIDE 10 ML SYRINGE IV SCH ×2 (05:20→07:36)
[2022-03-06] MEDS: INSULIN LISPRO 1 UNIT/0.01 ML UNIT SQ SCH (07:13)
[2022-03-06] MEDS: PANTOPRAZOLE 40 MG TABLET PO SCH (07:13)
[2022-03-06] MEDS: NIFEdipine 30 MG TAB.XL.24H PO SCH (07:32)
[2022-03-06] MEDS: MULTIVIT,THER IRON,CA,FA & MIN 1 TABLET PO SCH (07:33)
[2022-03-06] MEDS: ESCITALOPRAM 20 MG TABLET PO SCH (07:33)
[2022-03-06] MEDS: metFORMIN 500 MG TAB.XL.24H PO SCH (07:33)
[2022-03-06] MEDS: PREGABALIN 150 MG CAPSULE PO SCH (07:34)
[2022-03-06] MEDS: ASPIRIN 81 MG TAB.CHEW PO SCH (07:34)
[2022-03-06] MEDS: DOCUSATE SODIUM 100 MG CAPSULE PO SCH (07:34)
[2022-03-06] MEDS: ATORVASTATIN 10 MG TABLET PO SCH (07:34)
[2022-03-06] MEDS: METOPROLOL TARTRATE 25 MG TABLET PO SCH (07:34)
[2022-03-06] MEDS: INSULIN GLARGINE, HUMAN 1 UNIT/0.01 ML SQ SCH (07:35)
[2022-03-06] MEDS: LISINOPRIL 20 MG TABLET PO SCH (07:35)
[2022-03-06] MEDS: ENOXAPARIN 40 MG/0.4 ML SYRINGE SQ SCH (07:36)
[2022-03-06] MEDS: POLYETHYLENE GLYCOL 3350 17 GM PACKET PO SCH (07:37)
[2022-03-06] MEDS: cefTRIAXone 2 GM in DEXTROSE 5% IN WATER 50 ML IV SCH (07:49)
== END 2022-03-06 09:39 | disposition home or self-care (01) | DRG 617 ==
LOC: ED 13:54 → MEDSUR 18:15
PROVIDERS: ADMIT Internal Medicine; ATTEND Internal Medicine